=== PATIENT | female | born 1975 | race Caucasian/White ===

== ENCOUNTER → 2018-03-02 09:30 | Outpatient (CLI) | payer MEDICAID, SELFPAY ==
[2018-03-02 10:38] LABS: HCT 42.8 % (36.0-46.0); HGB 14.7 g/dL (12.0-15.5); Mean Corp. HGB Concentration 34.3 g/dL (32.0-36.0); Mean Corpuscular Volume 93.2 fL (80-95); Platelet Count 251 x1000/uL (130-400); RBC 4.59 m/cumm (4.00-5.20); RBC Distribution Width 11.8 % (11.7-14.6); White Blood Cell Count 6.47 k/cumm (4.4-10.8)
[2018-03-02 10:58] LABS: ALT 18 U/L (12-78); AST 11 U/L (15-37); Albumin 4.1 g/dL (3.4-5.0); Alkaline Phosphatase 68 U/L (46-116); Anion Gap 8.1 mmol/L (3-11); BUN 9 mg/dL (7-18); Bilirubin, Total 0.7 mg/dL (0.2-1.0); CO2 28.9 mmol/L (21.0-32.0); CREATININE 0.76 mg/dL (0.55-1.02); Chloride 103 mmol/L (98-107); Glucose 82 mg/dL (70-100); Potassium 3.9 mmol/L (3.5-5.1); Sodium 140 mmol/L (136-145); Total Protein 7.8 g/dL (6.4-8.2)
[2018-03-02 11:38] LABS: ESR 20 MM/HR (0-20)
== END ==
PROVIDERS: PCP Physician Assistant Medical; Visit Provider Internal Medicine Rheumatology
DX: L40.9 Psoriasis, unspecified (principal); Z79.1 Long term (current) use of non-steroidal anti-inflammatories (NSAID)
CPT/HCPCS: 36415; 80053; 85027; 85652; 86140

== ENCOUNTER 2018-08-28 12:48 | Outpatient (CLI) | payer MEDICAID, SELFPAY ==
[2018-08-28 13:18] LABS: HCT 39.5 % (36.0-46.0); HGB 13.7 g/dL (12.0-15.5); Mean Corp. HGB Concentration 34.7 g/dL (32.0-36.0); Mean Corpuscular Hemoglobin 32.3 pg (27.0-33.0); Mean Corpuscular Volume 93.2 fL (80-95); Mean Platelet Volume 9.1 fL (8.0-11.0); Platelet Count 253 x1000/uL (130-400); RBC 4.24 m/cumm (4.00-5.20); White Blood Cell Count 9.03 k/cumm (4.4-10.8)
[2018-08-28 13:48] LABS: ALT 15 U/L (12-78); AST 13 U/L (15-37); Albumin 3.8 g/dL (3.4-5.0); Alkaline Phosphatase 64 U/L (46-116); Anion Gap 9.4 mmol/L (3-11); BUN 11 mg/dL (7-18); Bilirubin, Total 0.5 mg/dL (0.2-1.0); C-Reactive Protein 0.22 mg/dL (0.0-0.3); CO2 28.6 mmol/L (21.0-32.0); CREATININE 0.95 mg/dL (0.55-1.02); Calcium 9.5 mg/dL (8.5-10.1); Chloride 103 mmol/L (98-107); Glucose 95 mg/dL (70-100); Potassium 4.1 mmol/L (3.5-5.1); Sodium 141 mmol/L (136-145); Total Protein 7.8 g/dL (6.4-8.2)
[2018-08-28 14:30] LABS: ESR 28 MM/HR (0-20)
[2018-08-29 04:58] LABS: Vitamin D 25 Total 55.4 ng/ml (30-100)
== END 2018-08-28 13:08 ==
PROVIDERS: PCP Physician Assistant Medical; Visit Provider Internal Medicine Rheumatology
DX: L40.9 Psoriasis, unspecified (principal); Z79.1 Long term (current) use of non-steroidal anti-inflammatories (NSAID); E55.9 Vitamin D deficiency, unspecified
CPT/HCPCS: 36415; 80053; 82306; 85027; 85652; 86140

== ENCOUNTER 2018-11-15 16:01 | Outpatient (CLI) | payer MEDICAID, SELFPAY ==
[2018-11-15 16:19] LABS: Abs Immature Grans 0.01 k/cumm (0.0-0.09); Absolute Basophil Count 0.04 k/cumm (0.0-0.2); Absolute Eosinophil Count 0.06 k/cumm (0.0-0.7); Absolute Lymphocyte Count 1.82 k/cumm (1.2-3.4); Absolute Monocyte Count 0.59 k/cumm (0.11-0.7); Absolute Neutrophil Count 3.97 k/cumm (1.2-6.7); Basophils % 0.6; Eosinophils % 0.9; HCT 39.8 % (36.0-46.0); HGB 13.7 g/dL (12.0-15.5); Immature Grans % 0.2; Mean Corp. HGB Concentration 34.4 g/dL (32.0-36.0); Mean Corpuscular Hemoglobin 32.2 pg (27.0-33.0); Mean Corpuscular Volume 93.4 fL (80-95); Mean Platelet Volume 9.3 fL (8.0-11.0); Monocytes % 9.1; Neutrophils % 61.2; Platelet Count 244 x1000/uL (130-400); RBC 4.26 m/cumm (4.00-5.20); White Blood Cell Count 6.49 k/cumm (4.4-10.8)
[2018-11-15 17:03] LABS: ALT 23 U/L (12-78); AST 12 U/L (15-37); Albumin 3.8 g/dL (3.4-5.0); Alkaline Phosphatase 57 U/L (46-116); Anion Gap 9.2 mmol/L (3-11); BUN 11 mg/dL (7-18); Bilirubin, Total 0.5 mg/dL (0.2-1.0); C-Reactive Protein 0.19 mg/dL (0.0-0.3); CO2 26.8 mmol/L (21.0-32.0); CREATININE 0.76 mg/dL (0.55-1.02); Calcium 8.5 mg/dL (8.5-10.1); Chloride 101 mmol/L (98-107); Glucose 103 mg/dL (70-100); Potassium 3.7 mmol/L (3.5-5.1); Sodium 137 mmol/L (136-145); Total Protein 7.4 g/dL (6.4-8.2)
[2018-11-15 18:13] LABS: ESR 19 MM/HR (0-20)
== END 2018-11-15 16:21 ==
PROVIDERS: Internal Medicine Rheumatology; PCP Physician Assistant Medical; Visit Provider Physician Assistant Medical
DX: L40.9 Psoriasis, unspecified (principal); Z79.01 Long term (current) use of anticoagulants; E03.9 Hypothyroidism, unspecified
CPT/HCPCS: 36415; 80053; 85652; 84443; 85025; 86140

== ENCOUNTER 2019-05-13 11:40 | Outpatient (CLI) | payer MEDICAID, SELFPAY ==
[2019-05-13 13:17] LABS: TSH (W/Ref FT4) 0.24 uIU/mL (0.36-3.74)
[2019-05-13 13:35] LABS: FREE T4 1.32 ng/dL (0.76-1.46)
== END 2019-05-13 12:00 ==
PROVIDERS: PCP Physician Assistant Medical; Visit Provider Physician Assistant Medical
DX: E03.9 Hypothyroidism, unspecified (principal)
CPT/HCPCS: 36415; 84439; 84443

== ENCOUNTER 2019-12-29 21:36 | Outpatient (REF) | payer MEDICAID, SELFPAY ==
[2019-12-29 20:44] LABS: Hemoglobin A1C 5.3 % (3.8-5.6)
[2019-12-29 20:50] LABS: TSH 1.54 uIU/mL (0.36-3.74)
== END 2019-12-29 21:56 ==
LOC: NCHCN 21:36
PROVIDERS: PCP Physician Assistant Medical; Visit Provider Physician Assistant Medical
DX: Z13.29 Encounter for screening for other suspected endocrine disorder (principal); Z13.1 Encounter for screening for diabetes mellitus; Z00.00 Encounter for general adult medical examination without abnormal findings
CPT/HCPCS: 83036; 84443

== ENCOUNTER 2020-03-16 00:39 | Outpatient (CLI) | payer MEDICAID, SELFPAY ==
--- NOTE | 2020-03-16 13:05 | DI.MAMMO_ITS ---
EXAM: MG MAMMO SCREENING CLINICAL HISTORY: SCREENING, Z12.31, PREVENTATIVE CARE, Z00.00 TECHNIQUE: Bilateral full field digital CC and MLO mammographic images were obtained with 3D tomosyn thesis and utilizing computer aided detection (CAD). COMPARISON: None. FINDINGS: Masses/Architectural Distortion: None seen. Microcalcifications: No suspicious pleomorphic-type are seen. Skin Thickening/Nipple Retraction: None. IMPRESSION: 1. No significant interval change with no specific features of malignancy noted. 2. Unless there is more urgent need, screening mammography is recommended, as per [employer] guidelines. BI-RADS Category 1 - Negative Breast Density - Category B - Scattered areas of fibroglandular density A negative radiographic report should not delay biopsy if a dominant or clinically suspicious mass is present. Up to ten percent of cancers are not identified on mammography. A negative report may reinforce clinical impression. Adenosis and dense breasts may obscure an underlying neoplasm. False positive reports average 6 to 10%. Patient will receive a letter notifying them of these results.
== END 2020-03-16 00:59 ==
PROVIDERS: PCP Physician Assistant Medical; Visit Provider Physician Assistant Medical
DX: Z12.31 Encounter for screening mammogram for malignant neoplasm of breast (principal)
CPT/HCPCS: 77063; 77067

== ENCOUNTER 2020-11-22 22:59 | Outpatient (REF) | payer MEDICAID, SELFPAY ==
[2020-11-22 16:21] LABS: Abs Immature Grans 0.03 10^3/uL (0.0-0.06); Absolute Basophil Count 0.03 10^3/uL (0.0-0.2); Absolute Eosinophil Count 0.05 10^3/uL (0.0-0.7); Absolute Lymphocyte Count 1.76 10^3/uL (1.2-3.4); Absolute Monocyte Count 0.46 10^3/uL (0.1-0.8); Absolute Neutrophil Count 3.84 10^3/uL (1.2-6.7); Basophils % 0.5; Eosinophils % 0.8; HCT 42.1 % (36.0-46.0); HGB 14.6 g/dL (11.2-15.7); Immature Grans % 0.5; Lymphocytes % 28.5; MCH 31.6 pg (27.0-33.0); MCHC 34.7 % (32.0-36.0); MCV 91.1 fL (80-95); MPV 9.9 fL (8.0-11.0); Monocytes % 7.5; Neutrophils % 62.2; Nucleated RBC 0 %; Platelet Count 266 10^3/uL (130-400); RBC 4.62 10^6/uL (3.93-5.22); RDW 11.5 % (11.7-14.6); RDW-SD 38.4 fL; WBC 6.17 10^3/uL (4.4-10.8)
[2020-11-22 16:53] LABS: ALT 23 U/L (14-59); AST 20 U/L (15-37); Albumin 3.9 g/dL (3.4-5.0); Alkaline Phosphatase 70 U/L (46-116); Anion Gap 11.4 mmol/L (3-11); BUN 10 mg/dL (7-18); Bilirubin, Total 0.6 mg/dL (0.2-1.0); CO2 24.6 mmol/L (21.0-32.0); CREATININE 0.7 mg/dL (0.55-1.02); Calcium 9.1 mg/dL (8.5-10.1); Chloride 105 mmol/L (98-107); Creatine Kinase 418 U/L (26-192); FREE T4 1.23 ng/dL (0.76-1.46); Glucose 99 mg/dL (74-106); Magnesium 2.2 mg/dL (1.8-2.4); Potassium 4.1 mmol/L (3.5-5.1); Sodium 141 mmol/L (136-145); TSH 2.14 uIU/mL (0.36-3.74); Total Protein 7.5 g/dL (6.4-8.2)
[2020-11-22 16:59] LABS: Hemoglobin A1C 5.5 % (<5.7)
[2020-11-23 17:35] LABS: T3, Total 141 ng/dL (97-169)
== END 2020-11-22 23:00 | disposition home or self-care (01) ==
LOC: NCHCN 22:59
PROVIDERS: PCP Physician Assistant Medical; Visit Provider Physician Assistant Medical
DX: R53.83 Other fatigue (principal); E03.9 Hypothyroidism, unspecified; R25.2 Cramp and spasm; Z86.32 Personal history of gestational diabetes
CPT/HCPCS: 80053; 82550; 83036; 83735; 84439; 84443; 84480; 85025

== ENCOUNTER 2020-12-06 09:31 | Outpatient (REF) | payer MEDICAID, SELFPAY ==
[2020-12-06 15:29] LABS: Bilirubin Negative (Negative); Blood Negative (Negative); Clarity Clear (Clear); Glucose Negative (Negative); Ketones Negative (Negative); Leukocyte Esterase Trace (Negative); Nitrite Negative (Negative); Specific Gravity 1.015 (1.005-1.025); Urobilinogen 0.2 EU/dL (Up TO 0.2); pH 7.5 (5-8)
[2020-12-06 15:42] LABS: Bacteria Moderate HPF (Negative); C & S Indicated? No/Sq. Contamination; Casts Negative LPF (Negative); Crystals Negative HPF (Negative); Epithelial Cells Moderate HPF (Negative); Mucus Negative (Negative); RBC 0-2 HPF (0-2)
[2020-12-06 17:00] LABS: Creatine Kinase 81 U/L (26-192)
== END 2020-12-06 09:32 | disposition home or self-care (01) ==
LOC: NCHCN 09:31
PROVIDERS: PCP Physician Assistant Medical; Visit Provider Physician Assistant Medical
DX: R74.8 Abnormal levels of other serum enzymes (principal); R82.998 Other abnormal findings in urine
CPT/HCPCS: 82550; 81003; 81015

== ENCOUNTER 2020-12-16 13:55 | Emergency (ER) | payer MEDICAID, SELFPAY ==
[2020-12-16] VITALS (41 sets, daily range): BP systolic 118–170; BP diastolic 57–88; PULSE 73–97; RESP 11–27; TEMP 36.8; O2SAT 92–100
--- NOTE | 2020-12-16 13:45 | RT.EKG_ITS ---
APPROVED REPORT Exam: Resting ECG Reason for Exam: chest pain Patient Location: E HR:90 bpm ECG Measurements Heart Rate 90 AXIS NJ 174 P 59 QRSd 93 QRS 7 QT 363 T 40 QTc 444 Conclusion Sinus rhythm...normal P axis, V-rate 60- [address] t wave ischemic findings
--- NOTE | 2020-12-16 14:06 | ED.GENADUL_ITS ---
Discharge Plan Disposition Patient Disposition: HOME Condition: Improving Discharge Details Clinical Impression: Chest pain, Fatigue, Hypertension Primary Care Provider: Jose Antonio Harden ED Provider: Belen Walker Home Meds and New Rx's Prescriptions: Continued cholecalciferol (vitamin D3) 25 mcg (1,000 unit) capsule 25 mcg PO DAILY RF: 0 magnesium 200 mg tablet 200 mg PO DAILY RF: 0 bupropion HCl [Wellbutrin SR] 150 mg tablet sustained-release 12 hr 150 mg PO QAM RF: 0 triamcinolone acetonide 0.1 % cream 1 applic topical BID RF: 0 fluticasone propionate 50 mcg/actuation spray,suspension 2 spray intranasal DAILY RF: 0 levothyroxine 150 mcg capsule 150 mcg PO DAILY RF: 0 Mirena 1 EACH intrauterine device 1 ea Intrauterine RF: 0 ferrous sulfate 325 mg (65 mg iron) Tablet 325 mg PO DAILY RF: 0 Discharge Instructions Instructions: Chest Pain (ED), Hypertension (ED), Fatigue (ED) Additional Instructions: Drink plenty of fluids and get plenty of rest. Alternate tylenol and motrin as needed and directed for pain. Limit the sodium intake in your diet as this can contribute to high blood pressure. Follow-up with your scheduled appointment with your primary care doctor on Sunday for reevaluation and for continued monitoring of your blood pressure. Return immediately to the emergency department if you develop any worsening or new concerning symptoms. Discharge Data Discharge Physician: Belen Walker Medical Decision Making <Wiliam Pinzon MD - Last Filed: 12/16/20 15:06> 45 yo female with hx of hypothyroidism, no known history of hypertension, comes in with complaints of intermittent not feeling well and chest pain. She states she got her second covid vaccine on 12/06 on my history I took with her and the next 24 hours she was fatigued but that improved but still has had a general feeling of not feeling well. Since last Sunday she has had some intermittent left sided chest pain that sometimes increases with deep breaths otherwise can't think of anything else that makes it better or worse. Today at work as a [employer] she wasn't exerting herself significantly and felt a sharp pain in the left arm pit. She has been having high blood pressure since seing Dr. Chan in her office on 12/14 for evaluation for possible colonscopy and was in the 170's systolic at that time. She has been checking it at home and has had similar numbers. She went to urgent care with her left arm pit/chest pain and was referred here. She denies fever, chills, abdomen pain, n/v, diaphoresis. She denies pain in the chest now. She appears well systemically, no calf tenderness or leg swelling, clear lungs sounds and no murmurs. Her ekg shows no significant acute ischemic findings. Heart score is 3, will send troponin. Will also evaluate for Pe given the pleuritic chest pain. No tearing chest pain and normal vascular exam so doubt dissection pt remains stable, labs unremarkable, awaiting CTA. Pt will be signed out pending cta and repeat troponin Differential Diagnosis Differential Diagnosis: chest wall pain, PE, nstemi ECG Data Attestation: I personally reviewed and interpreted this ECG (s) as follows: Prior ECG tracings: not available for review Interpretation: sinus rhythm, rate of 90, pr 174, no acute st t wave ischemic findings <Bleen Walker DO - Last Filed: 12/16/20 21:37> 1500 --please see Dr. Pinzon's note for initial presentation, exam and plan. Case endorsed to follow-up on CT chest and repeat troponin and EKG. if work-up negative and blood pressure continues to improve, will discharge to home. 45-year-old female with a history of obesity and hypothyroidism presents for flulike symptoms for the past 10 days after her second Covid vaccine with intermittent substernal chest pressure for the past 6 days and left arm pain today. Blood pressure now 150/88. She admits to some mild substernal chest pressure which is reproducible. History and presentation does not appear consistent with ACS. She denies left arm pain. CT chest negative for PE but notes cholelithiasis without evidence of cholecystitis. Will give a dose of Toradol and reassess. 1800 -- BP 118/70. Repeat Trop negative. Repeat EKG unchanged. Patient admits to improvement of chest pressure after Toradol. Patient states she feels good to go home. She has a follow-up appointment with her primary care doctor on Sun. Advised to limit sodium in the diet as this may be contributing to her intermittent hypertension. Will not start any antihypertensive meds at this time. Discussed that it is unclear at this time if her hypertension is related to the Covid vaccine. Advised to continue rest and fluids. Usual and customary return precautions given prior to discharge. Medical Records Medical records reviewed: Yes I reviewed the patient's medical records. Imaging Data Radiologic Study: Radiologist's impression: CT CHEST PE CTA CLINICAL HISTORY: fatigue, pleuritic chest pain. TECHNIQUE: Imaging Protocol: Axial CT angiography was performed with multi- slice acquisition and multi-planar and/or 3D reconstructions. CONTRAST MATERIAL: Intravenous: Omnipaque 350 Contrast volume:100 mL COMPARISON: No exams were available for comparison FINDINGS: Tracheobronchial tree: Patent where visualized. Pulmonary parenchyma: There is dependent atelectasis. No focal consolidating infiltrates. There is poor inspiration. No architectural distortion. Pulmonary Arteries: No evidence of filling defect to suggest pulmonary emboli. Mediastinum and Ronel: No dominant adenopathy or fluid collection. Small hiatal hernia. Visualized thyroid gland: Unremarkable. Pleura: No effusion or pneumothorax. Heart: The heart is not dilated. No coronary artery calcifications are seen. No pericardial effusion. Aorta: Thoracic aorta non-dilated. Mild atherosclerosis. No dissection. Upper abdomen: Cholelithiasis. No biliary ductal dilatation. Soft tissues: Unremarkable. Bones: No acute abnormality. IMPRESSION: 1. No evidence of pulmonary embolism, thoracic aortic dissection or aneurysm. 2. Cholelithiasis. No CT evidence of acute cholecystitis. 3. Results of this exam have been verbally communicated with provider. Lab Data Lab results reviewed: Yes I reviewed the patient's lab results. Labs: Laboratory Tests Range/Units 12/16/20 12/16/20 12/16/20 14:05 14:05 14:05 WBC (4.4-10.8) 10^3/uL 9.17 RBC (3.93-5.22) 10^6/uL 4.84 Hgb (11.2-15.7) g/dL 15.1 Hct (36.0-46.0) % 43.4 MCV (80-95) fL 89.7 MCH (27.0-33.0) pg 31.2 MCHC (32.0-36.0) % 34.8 RDW (11.7-14.6) % 11.2 L Plt Count (130-400) 10^3/uL 306 MPV (8.0-11.0) fL 8.9 Immature Gran % 0.8 Neutrophils % 65.9 Lymphocytes % 25.0 Monocytes % 7.0 Eosinophils % 0.9 Basophils % 0.4 Nucleated RBC % % 0 Absolute Neutrophils (1.2-6.7) 10^3/uL 6.05 Absolute Lymphocytes (1.2-3.4) 10^3/uL 2.29 Absolute Monocytes (0.1-0.8) 10^3/uL 0.64 Absolute Eosinophils (0.0-0.7) 10^3/uL 0.08 Absolute Basophils (0.0-0.2) 10^3/uL 0.04 PT (9.3-11.0) sec 10.3 INR (0.9-1.1) 1.0 APTT (21.0-27.5) sec 28.1 H Sodium (136-145) mmol/L 140 Potassium (3.5-5.1) mmol/L 3.6 Chloride (98-107) mmol/L 103 Carbon Dioxide (21.0-32.0) mmol/L 28.6 Anion Gap (3-11) mmol/L 8.4 BUN (7-18) mg/dL 10 Creatinine (0.55-1.02) mg/dL 0.8 Estimated GFR/1.73 m2 (mL/min/1.73m2) >= 60.00 Glucose (74-106) mg/dL 105 Calcium (8.5-10.1) mg/dL 9.1 Magnesium (1.8-2.4) mg/dL 2.3 Total Bilirubin (0.2-1.0) mg/dL 0.6 AST (15-37) U/L 19 ALT (14-59) U/L 31 Alkaline Phosphatase (46-116) U/L 80 Troponin I (<0.06) ng/mL < 0.05 Total Protein (6.4-8.2) g/dL 8.5 H Albumin (3.4-5.0) g/dL 4.1 Lipase (73-393) U/L 33 Range/Units 12/16/ 17:10 WBC (4.4-10.8) 10^3/uL RBC (3.93-5.22) 10^6/uL Hgb (11.2-15.7) g/dL Hct (36.0-46.0) % MCV (80-95) fL MCH (27.0-33.0) pg MCHC (32.0-36.0) % RDW (11.7-14.6) % Plt Count (130-400) 10^3/uL MPV (8.0-11.0) fL Immature Gran % Neutrophils % Lymphocytes % Monocytes % Eosinophils % Basophils % Nucleated RBC % % Absolute Neutrophils (1.2-6.7) 10^3/uL Absolute Lymphocytes (1.2-3.4) 10^3/uL Absolute Monocytes (0.1-0.8) 10^3/uL Absolute Eosinophils (0.0-0.7) 10^3/uL Absolute Basophils (0.0-0.2) 10^3/uL PT (9.3-11.0) sec INR (0.9-1.1) APTT (21.0-27.5) sec Sodium (136-145) mmol/L Potassium (3.5-5.1) mmol/L Chloride (98-107) mmol/L Carbon Dioxide (21.0-32.0) mmol/L Anion Gap (3-11) mmol/L BUN (7-18) mg/dL Creatinine (0.55-1.02) mg/dL Estimated GFR/1.73 m2 (mL/min/1.73m2) Glucose (74-106) mg/dL Calcium (8.5-10.1) mg/dL Magnesium (1.8-2.4) mg/dL Total Bilirubin (0.2-1.0) mg/dL AST (15-37) U/L ALT (14-59) U/L Alkaline Phosphatase (46-116) U/L Troponin I (<0.06) ng/mL < 0.05 Total Protein (6.4-8.2) g/dL Albumin (3.4-5.0) g/dL Lipase (73-393) U/L HPI <Wiliam Pinzon MD - Last Filed: 12/16/20 15:06> General Mode of arrival: ambulatory . Date/Time Provider Initiated Documentation: 12/16/20 13:59 . Limitations to Documentation: no limitations . Information obtained by: patient . History of Present Illness 45 year old F presents to the emergency department with the chief complaint of chest pain, described as moderate, Quality is described as aching, and is localized to the chest. Patient started experiencing this day(s) (6) and it has been intermittent. No relieving factors improve symptom(s), No exacerbating factors reported . Patient did receive the following treatments prior to arrival, none Related Data Home Medications Medication Instructions Recorded Confirmed Mirena 1 ea INTRAUTERINE 12/17/17 bupropion HCl 150 mg tablet,12 hr 150 mg PO QAM 11/24/20 12/16/20 sustained-release fluticasone propionate 50 2 spray INTRANASAL DAILY 11/24/20 12/16/20 mcg/actuation nasal spray,suspension levothyroxine 150 mcg capsule 150 mcg PO DAILY 11/24/20 12/16/20 triamcinolone acetonide 0.1 % 1 applic TOPICAL BID 11/24/20 12/16/20 topical cream cholecalciferol (vitamin D3) 25 25 mcg PO DAILY 12/14/20 mcg (1,000 unit) capsule magnesium 200 mg tablet 200 mg PO DAILY 12/14/20 12/16/20 ferrous sulfate 325 mg PO DAILY 12/16/20 12/16/20 Allergies Allergy/AdvReac Type Severity Reaction Status Date / Time methotrexate Allergy Intermediate Verified 12/16/20 14:06 latex Allergy Unknown Verified 12/16/20 14:06 General Stated Complaint: Chest Pain HAILEY: 2 Review of Systems <Wiliam Pinzon MD - Last Filed: 12/16/20 15:06> All systems reviewed & are unremarkable except as noted in HPI and below Constitutional Constitutional: Denies chills and Denies fever(s) Respiratory Respiratory: Denies cough Gastrointestinal Gastrointestinal: Denies abdominal pain, Denies nausea and Denies vomiting PFS <Wiliam Pinzon MD - Last Filed: 12/16/20 15:06> Medical History Bilateral carpal tunnel syndrome Depression Erythema multiforme Fatigue Gestational diabetes Gestational diabetes mellitus (GDM) affecting Hemorrhoids History of depression Hypothyroidism Hypothyroidism affecting Jaw pain Lymphadenopathy Muscle cramps Perioral dermatitis Psoriasis of scalp Psoriatic arthritis Seasonal allergies Skin tag Tobacco abuse Toe infection Surgical History Dilation and curettage (01/16/16) SEVERED CORD AFTER DELIVERY OF INFANT, RETAINED PLACENTA. History of colposcopy Family History Mother Diabetes Father No problems noted. Grandmother Personal history of malignant neoplasm uterine Other Stroke Social History Smoking/Tobacco Use Status: Former Tobacco Use Quit Date: 10/14/12 Smoking risk assessment performed?: Yes Alcohol Intake: current Alcohol Intake frequency: holidays/special occasions only Drug use: Never Current gender identity: female Do you feel safe at home: Yes Do you feel safe in your relationship?: Yes Exam <Wiliam Pinzon MD - Last Filed: 12/16/20 15:06> Const General: no acute distress Orientation: alert HENMT Head: normal to inspection Ears: external ears normal General nose exam: external nose normal Mouth: moist mucous membranes Eyes General: appearance normal, both eyes and all related structures Neck Neck: normal visual inspection Resp Effort & Inspection: normal respiratory effort and able to speak in complete sentences Cardio Rate: regular rate GI Palpation: soft and nontender Skin General skin exam: no rashes or lesions noted Neuro General: patient alert and patient oriented x3 Extrem General: normal to inspection Psych Mental Status: mental status grossly normal Course <Wiliam Pinzon MD - Last Filed: 12/16/20 15:06> Vital Signs Vital signs: Vital Signs Temperature 36.8 C 12/16/20 14:00 Pulse 89 12/16/20 14:00 Respiratory Rate 20 12/16/20 14:00 Blood Pressure 170/88 H 12/16/20 14:00 Pulse Oximetry 99 12/16/20 14:00 Temperature 36.8 C 12/16/20 14:00 Temperature Source Temporal Artery Scan 12/16/20 14:00 Pulse 89 12/16/20 14:00 Respiratory Rate 20 12/16/20 14:00 Respiratory Effort Non-Labored 12/16/20 14:05 Blood Pressure 170/88 H 12/16/20 14:00 Blood Pressure Position Supine 12/16/20 14:00 Pulse Oximetry 99 12/16/20 14:00 Oxygen Delivery Method Room Air 12/16/20 14:00 Oxygen Flow Rate 0 12/16/20 14:00 Pain Level 0 12/16/20 14:00 Sign Out <Wiliam Pinzon MD - Last Filed: 12/16/20 15:06> Sign Out Data: Sign Out Comment: pleuritic chest pain, initial troponin negative, awaiting repeat troponin/ecg and cta results Last updated by Wiliam Pinzon MD at 12/16/20 15:07
[2020-12-16 14:13] LABS: Abs Immature Grans 0.07 10^3/uL (0.0-0.06); Absolute Basophil Count 0.04 10^3/uL (0.0-0.2); Absolute Eosinophil Count 0.08 10^3/uL (0.0-0.7); Absolute Lymphocyte Count 2.29 10^3/uL (1.2-3.4); Absolute Monocyte Count 0.64 10^3/uL (0.1-0.8); Absolute Neutrophil Count 6.05 10^3/uL (1.2-6.7); Basophils % 0.4; Eosinophils % 0.9; HCT 43.4 % (36.0-46.0); HGB 15.1 g/dL (11.2-15.7); Immature Grans % 0.8; MCH 31.2 pg (27.0-33.0); MCHC 34.8 % (32.0-36.0); MCV 89.7 fL (80-95); MPV 8.9 fL (8.0-11.0); Neutrophils % 65.9; Nucleated RBC 0 %; Platelet Count 306 10^3/uL (130-400); RBC 4.84 10^6/uL (3.93-5.22); RDW 11.2 % (11.7-14.6); RDW-SD 36.8 fL; WBC 9.17 10^3/uL (4.4-10.8)
--- NOTE | 2020-12-16 14:15 | DI.CT_ITS ---
Exam(s) CT CHEST PE CTA EXAM: CT CHEST PE CTA CLINICAL HISTORY: fatigue, pleuritic chest pain. TECHNIQUE: Imaging Protocol: Axial CT angiography was performed with multi-slice acquisition and mu lti-planar and/or 3D reconstructions. CONTRAST MATERIAL: Intravenous: Omnipaque 350 Contrast volume:100 mL COMPARISON: No exams were available for comparison FINDINGS: Tracheobronchial tree: Patent where visualized. Pulmonary parenchyma: There is dependent atelectasis. No focal consolidating infiltrates. There is poor inspiration. No architectural distortion. Pulmonary Arteries: No evidence of filling defect to suggest pulmonary emboli. Mediastinum and Ronel: No dominant adenopathy or fluid collection. Small hiatal hernia. Visualized thyroid gland: Unremarkable. Pleura: No effusion or pneumothorax. Heart: The heart is not dilated. No coronary artery calcifications are seen. No pericardial effusion. Aorta: Thoracic aorta non-dilated. Mild atherosclerosis. No dissection. Upper abdomen: Cholelithiasis. No biliary ductal dilatation. Soft tissues: Unremarkable. Bones: No acute abnormality. IMPRESSION: 1. No evidence of pulmonary embolism, thoracic aortic dissection or aneurysm. 2. Cholelithiasis. No CT evidence of acute cholecystitis. 3. Results of this exam have been verbally communicated with provider. RADIATION DOSE DELIVERED: 582.59mGy.cm Total DLP DATA REPOSITORY: All CT scans at this facility are submitted to the National Radiology Data Registry (NRDR) Dose Index Registry (DIR) with the [employer] (ACR). RADIATION OPTIMIZATION: All CT scans at this facility use at least one of these dose optimization te chniques: automated exposure control; mA and/or kV adjustment per patient size (includes targeted exa ms where dose is matched to clinical indication); or iterative reconstruction.
[2020-12-16 14:25] LABS: PTT Activated 28.1 sec (21.0-27.5); Prothrombin Time 10.3 sec (9.3-11.0)
[2020-12-16 14:28] LABS: ALT 31 U/L (14-59); AST 19 U/L (15-37); Albumin 4.1 g/dL (3.4-5.0); Alkaline Phosphatase 80 U/L (46-116); Anion Gap 8.4 mmol/L (3-11); BUN 10 mg/dL (7-18); Bilirubin, Total 0.6 mg/dL (0.2-1.0); CO2 28.6 mmol/L (21.0-32.0); CREATININE 0.8 mg/dL (0.55-1.02); Calcium 9.1 mg/dL (8.5-10.1); Chloride 103 mmol/L (98-107); Glucose 105 mg/dL (74-106); Lipase 33 U/L (73-393); Magnesium 2.3 mg/dL (1.8-2.4); Potassium 3.6 mmol/L (3.5-5.1); Sodium 140 mmol/L (136-145); Total Protein 8.5 g/dL (6.4-8.2)
[2020-12-16 14:29] LABS: Troponin I < 0.05 ng/mL (<0.06)
[2020-12-16] MEDS: Omnipaque 350 MG/ML 100 ML BTL IJ (15:01)
[2020-12-16] MEDS: Normal Saline - Diluent 50 ML VIAL IV (15:02)
[2020-12-16] MEDS: Aspirin 81 MG CHEW 324 MG CH (15:20)
[2020-12-16] MEDS: Normal Saline 250 ML 500 ML IV (15:40)
[2020-12-16] MEDS: Ketorolac 30 MG/ML VIAL IVP (15:40)
--- NOTE | 2020-12-16 16:15 | RT.EKG_ITS ---
APPROVED REPORT Exam: Resting ECG Reason for Exam: chest pressure Patient Location: E HR:76 bpm ECG Measurements Heart Rate 76 AXIS DC 187 P 45 QRSd 87 QRS 4 QT 386 T 27 QTc 434 Conclusion Sinus rhythm...normal P axis, V-rate 60- 99 Physician: No stemi, stable
[2020-12-16 18:07] LABS: Troponin I < 0.05 ng/mL (<0.06)
== END 2020-12-16 18:32 | disposition home or self-care (01) ==
PROVIDERS: Emergency Medicine; Emergency Provider Physician Assistant; PCP Physician Assistant Medical
DX: R07.89 Other chest pain (principal); I10 Essential (primary) hypertension; R53.83 Other fatigue; R07.81 Pleurodynia
CPT/HCPCS: 36415; 71275; 80053; 81025; 83690; 93005; 96361; 96374; 99285; 83735; 84484; 85025; 85610; 85730; 93010; 99284; J1885; J3490

== ENCOUNTER 2020-12-21 10:54 | Outpatient (RCR) | payer MEDICAID, SELFPAY ==
--- NOTE | 2020-12-21 11:30 | HOLTER_ITS ---
APPROVED REPORT Conclusion This is a 48-hour monitor ordered for indication of palpitations. ???The patient was in normal sinus rhythm for the majority of the recording with an average heart rat e of 82 bpm. ???There was one episode of supraventricular tachycardia which lasted 3 beats. There were 6 other PA Cs ???There were no episodes of ventricular tachycardia and 2 total PVCs. ???There were no episodes of atrial fibrillation, no pauses greater than 3 seconds and no evidence of high degree heart block. ???There was a single patient reported event with no symptoms and no arrhythmia correlation.
== END 2021-01-12 23:59 | disposition home or self-care (01) ==
LOC: RT 10:54
PROVIDERS: PCP Physician Assistant Medical; Visit Provider Physician Assistant Medical
DX: R00.2 Palpitations (principal); I47.1 Supraventricular tachycardia; I49.3 Ventricular premature depolarization; I49.1 Atrial premature depolarization
CPT/HCPCS: 93225; 93226

== ENCOUNTER 2021-01-10 11:07 | Outpatient (REF) | payer MEDICAID, SELFPAY ==
--- NOTE | 2021-01-10 08:30 | PAPFT_PTH ---
PATIENT: Clarita Smith LOC: [facility]#:[id number] AGE/SX: 45/F ROOM: RE01/10/[address]: Jose Antonio Harden : 1975 BED: DIS: 01/10/2021 SPEC #: [id number] RECD: 01/11/21 12:48 STATUS: JONAH RELiya #: [id number] SIRENA: 01/10/21 08:[address]: Jose Antonio Harden DEPT: [facility] Cytology RECD BY: India Sanchez Tissues: 1 - CX/ENDOCX FOR PAP SMEARS Procedures: PAP THIN PREP/UVM Screening HPV DNA PROBE Comments: [id number]
[2021-01-10 14:45] LABS: Anion Gap 8.9 mmol/L (3-11); BUN 8 mg/dL (7-18); CO2 28.1 mmol/L (21.0-32.0); CREATININE 0.7 mg/dL (0.55-1.02); Calculated LDL 110 mg/dL (<100); Chloride 104 mmol/L (98-107); Cholesterol 170 mg/dL (<200); Glucose 108 mg/dL (74-106); HDL Cholesterol 43 mg/dL (40-60); Potassium 4.3 mmol/L (3.5-5.1); Sodium 141 mmol/L (136-145); Triglyceride 86 mg/dL (<150)
== END 2021-01-10 11:08 | disposition home or self-care (01) ==
LOC: NCHCN 11:07
PROVIDERS: PCP Physician Assistant Medical; Visit Provider Physician Assistant Medical
DX: I10 Essential (primary) hypertension (principal); Z12.4 Encounter for screening for malignant neoplasm of cervix; Z11.51 Encounter for screening for human papillomavirus (HPV)
CPT/HCPCS: 80048; 80061; 88142; 87624

== ENCOUNTER 2021-06-06 02:27 | Outpatient (CLI) | payer MEDICAID, SELFPAY ==
[2021-06-06 10:32] LABS: Source Nasal/Nares
[2021-06-06 13:55] LABS: COVID-19 PCR Negative (Negative)
== END 2021-06-06 02:28 | disposition home or self-care (01) ==
LOC: LBO 02:27
PROVIDERS: PCP Physician Assistant Medical; Visit Provider Student in an Organized Health Care Education/Training Program
DX: Z20.822 Contact with and (suspected) exposure to COVID-19 (principal)
CPT/HCPCS: 87635

== ENCOUNTER 2021-06-07 06:39 | Day surgery (SDC) | payer MEDICAID, SELFPAY ==
--- NOTE | 2021-06-07 06:53 | W.ANESPRE ---
General Info Date of Service Date Performed: 06/07/21 Height: 5 ft 3 in Weight: 106.141 kg Body Mass Index (BMI): 41.4 Surgical Procedure: Operation Date: 06/07/21 07:40 Proposed Procedures Side Surgeon p Wrist ECTR Left Chirag Anaya MD Meds Allergies and Home Medications Allergies Allergy/AdvReac Type Severity Reaction Status Date / Time methotrexate Allergy Intermediate Verified 06/07/21 06:55 latex Allergy Unknown Verified 06/07/21 06:55 Home Medication Medication Instructions Recorded Mirena 1 ea INTRAUTERINE 12/17/17 bupropion HCl 150 mg tablet,12 hr 150 mg PO QAM 11/24/20 sustained-release fluticasone propionate 50 2 spray INTRANASAL DAILY 11/24/20 mcg/actuation nasal spray,suspension levothyroxine 150 mcg capsule 150 mcg PO DAILY 11/24/20 triamcinolone acetonide 0.1 % 1 applic TOPICAL BID 11/24/20 topical cream cholecalciferol (vitamin D3) 25 25 mcg PO DAILY 12/14/20 mcg (1,000 unit) capsule magnesium 200 mg tablet 200 mg PO DAILY 12/14/20 ferrous sulfate 325 mg PO DAILY 12/16/20 losartan 25 mg tablet 50 mg PO DAILY tab 03/28/21 Current Visit Medications: Current Medications Generic Name Dose Route Start Last Admin Trade Name Freq PRN Reason Stop Dose Admin Ringer's Solution 1,000 mls @ 80 mls/hr 06/07/21 06:00 IV 07/06/21 23:59 INFUSION YAIR Cefazolin Sodium/Dextrose 2 gm in 50 mls @ 100 mls/hr 06/07/21 06:00 Ancef Duplex IVPB 07/06/21 23:59 PREOP YAIR IV Miscellaneous Supplies 1 each 06/07/21 06:00 Iv Access IV 07/06/21 23:59 DIRECTED YAIR Sodium Chloride 0 ml 06/07/21 06:00 Normal Saline Flush 10 Ml Syr IV 07/06/21 23:59 PRN PRN Sodium Chloride 0 ml 06/07/21 06:00 Normal Saline 10 Ml Vial IJ 07/06/21 23:59 DIRECTED PRN Sterile Water 0 ml 06/07/21 06:00 Water,Injection,Sterile 10 Ml Vial IJ 07/06/21 23:59 DIRECTED PRN PFSH Active Problems Active Problems: Problem Status Onset Code Left carpal tunnel syndrome G56.02 Right carpal tunnel syndrome G56.01 Chest pain R07.9 Fatigue R53.83 Hypertension I10 External hemorrhoids K64.4 Rectal bleed K62.5 Medical History Active Problem List Rectal bleed (Acute) External hemorrhoids (Acute) Chest pain (Acute) Fatigue (Acute) Hypertension (Chronic) Right carpal tunnel syndrome (Acute) Left carpal tunnel syndrome (Acute) Medical History Bilateral carpal tunnel syndrome Depression Erythema multiforme Fatigue Gestational diabetes Hemorrhoids Hypothyroidism Jaw pain Lymphadenopathy Muscle cramps Perioral dermatitis Psoriasis of scalp Psoriatic arthritis Seasonal allergies Skin tag Tobacco abuse Surgical History Surgical History (Updated 06/07/21 @ 06:57 by Alysha Bravo) Dilation and curettage (01/16/16) SEVERED CORD AFTER DELIVERY OF , RETAINED PLACENTA. History of colposcopy Hx of tonsillectomy Tobacco Smoking/Tobacco Use Status: Former Tobacco Use Alcohol Alcohol Intake: current Alcohol intake frequency: holidays/special occasions only Substance Use Substance use: Never Vital Signs and Lab Results Lab Results Blood Type / Crossmatch: No Data to Display Complete Blood Count: No Data to Display Complete Metabolic Panel: No Data to Display Liver Function Panel: No Data to Display Coagulation Panel: No Data to Display Cardiac Panel: No Data to Display Arterial Blood Gas: No Data to Display Venous Blood Gas: No Data to Display Pancreas Panel: No Data to Display Thyroid Panel: No Data to Display Infectious Disease: Coronavirus (COVID-19)(PCR) Negative (Negative) 06/06/21 08:32 06/06/21 Coronavirus 2019 Source Nasal/Nares 06/06/21 08:32 06/06/21 Blood Cultures: No Data to Display Toxicology Panel: No Data to Display Panel: No Data to Display Imaging and Studies Imaging and Studies EKG Summary: Conclusion Sinus rhythm...normal P axis, V-rate 60- 99 Anesthesia Assessment and Plan Anesthesia History Personal History: No History of Anesthesia Complications Family History: No Family History of Anesthesia Complications Exercise Tolerance Exercise Tolerance: Metabolic Equivalents>4 Pertinent Negatives Pertinent Negatives: No Symptoms of GERD, No Major Cardiovascular Symptoms or Complaints, No Major Pulmonary Symptoms or Complaints and No History of CVA/TIA Cardiac & Pulmonary Exam Cardiac Exam: Normal S1/S2 Heart Sounds Pulmonary Exam: Clear Bilateral Breath Sounds Implantable Cardiac Device Does patient have a Pacemaker or an ICD?: No Airway Exam Known Difficult Airway: No Mallampati Class: 2 Mouth Opening: Normal (> 3cm) Thyromental Distance: Greater than 3 cm Neck Range of Motion: Full ROM Neck Circumference: Normal Teeth Condition: Normal Dentition ASA Classification ASA Score: ASA 3 Emergency Case?: No NPO Status NPO Status: NPO Clears >2 hours, Solids >8 hours Status Status: Not Relevant due to Medical History Anesthesia Plan Resuscitation Status: Full Code Anesthesia Technique: General Anesthesia Airway Planned: Natural Airway Monitors Used: Standard Monitors
[2021-06-07 06:58] VITALS: BP 140/87; PULSE 77; RESP 18; TEMP 36.2; O2SAT 100
[2021-06-07] MEDS: Lactated Ringers 1,000 ML 80 ML IV (07:00)
[2021-06-07 07:09] VITALS: BMI 41.4
--- NOTE | 2021-06-07 07:09 | W.PREOPHP ---
Date of service: 06/07/21 Time of Service: 07:09 Assessment and Plan Assessment and plan (1) Left carpal tunnel syndrome: Status: Acute Assessment and plan: Magdalene is a 45-year-old who has bilateral carpal tunnel syndrome, worse on the left. She is here today for a left carpal tunnel release. This has been previously discussed in the office. Once again, reviewed the risk of the procedure to include bleeding, infection, pain, stiffness, recurrence, continued numbness, damage to nerves and vessels. Despite these risk, she elects to proceed. History of Present Illness History of Present Illness Chief Complaint: Left carpal tunnel syndrome Narrative: Magdalene is a 45-year-old who has bilateral hand numbness and tingling. The left hand is the worst. She has previously been seen in the office with confirmation of this diagnosis. She has failed conservative options and is here today for carpal tunnel release. She denies any acute medical issues. She denies any fevers or chills. No sick contacts. COVID-19 negative. Review of Systems All systems reviewed & are unremarkable except as noted in HPI and below PFSH Active Problem List Rectal bleed (Acute) External hemorrhoids (Acute) Chest pain (Acute) Fatigue (Acute) Hypertension (Chronic) Right carpal tunnel syndrome (Acute) Left carpal tunnel syndrome (Acute) Medical History Bilateral carpal tunnel syndrome Depression Erythema multiforme Fatigue Gestational diabetes Hemorrhoids Hypothyroidism Jaw pain Lymphadenopathy Muscle cramps Perioral dermatitis Psoriasis of scalp Psoriatic arthritis Seasonal allergies Skin tag Tobacco abuse Surgical History Dilation and curettage (01/16/16) SEVERED CORD AFTER DELIVERY OF INFANT, RETAINED PLACENTA. History of colposcopy Hx of tonsillectomy Family History Mother Diabetes Father No problems noted. 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 Pets and animals: Yes Pets and animals: guinea pig(s) Current gender identity: female What is your relationship status?: refused to answer Panel score (0-1 are the most socially isolated patients): 0 What type of physical activity do you participate in: walking Seatbelt use: always Do you feel safe at home: Yes Do you feel safe in your relationship?: Yes Meds Allergies and Home Medications Allergies Allergy/AdvReac Type Severity Reaction Status Date / Time methotrexate Allergy Intermediate Verified 06/07/21 06:55 latex Allergy Unknown Verified 06/07/21 06:55 Home Medications Medication Instructions Recorded Confirmed Type Mirena 1 ea INTRAUTERINE 12/17/17 History bupropion HCl 150 mg tablet,12 hr 150 mg PO QAM 11/24/20 06/07/21 History sustained-release fluticasone propionate 50 2 spray INTRANASAL DAILY 11/24/20 06/07/21 History mcg/actuation nasal spray,suspension levothyroxine 150 mcg capsule 150 mcg PO DAILY 11/24/20 06/07/21 History triamcinolone acetonide 0.1 % 1 applic TOPICAL BID 11/24/20 06/07/21 History topical cream cholecalciferol (vitamin D3) 25 25 mcg PO DAILY 12/14/20 06/07/21 History mcg (1,000 unit) capsule magnesium 200 mg tablet 200 mg PO DAILY 12/14/20 06/07/21 History ferrous sulfate 325 mg PO DAILY 12/16/20 06/07/21 History losartan 25 mg tablet 50 mg PO DAILY tab 03/28/21 06/07/21 History Exam Const General: cooperative, healthy appearing, comfortable and no acute distress Resp Auscultation: clear to auscultation bilaterally Cardio Rate: regular rate Rhythm: regular rhythm Results Last Vital Signs Temp 36.2 C L 06/07/21 06:58 Pulse 77 06/07/21 06:58 Resp 18 06/07/21 06:58 BP 140/87 06/07/21 06:58 Pulse Ox 100 06/07/21 06:58
--- NOTE | 2021-06-07 07:28 | W.PM.DSUDISC ---
Discharge Plan Disposition Patient Disposition: HOME Condition: Good Discharge Details Reason For Visit: L ECTR Attending Provider: Chirag Anaya Primary Care Provider: Jose Antonio Harden Home Meds and New Rx's Prescriptions: New acetaminophen 500 mg tablet 1,000 mg PO Q8H PRN (Reason: pain) Qty: 60 RF: 3 ibuprofen 600 mg tablet 600 mg PO TID PRN (Reason: pain) Qty: 90 RF: 3 Continued cholecalciferol (vitamin D3) 25 mcg (1,000 unit) capsule 25 mcg PO DAILY RF: 0 magnesium 200 mg tablet 200 mg PO DAILY RF: 0 losartan 25 mg tablet 50 mg PO DAILY RF: 0 bupropion HCl [Wellbutrin SR] 150 mg tablet sustained-release 12 hr 150 mg PO QAM RF: 0 triamcinolone acetonide 0.1 % cream 1 applic topical BID RF: 0 fluticasone propionate 50 mcg/actuation spray,suspension 2 spray intranasal DAILY RF: 0 levothyroxine 150 mcg capsule 150 mcg PO DAILY RF: 0 Mirena 1 EACH intrauterine device 1 ea Intrauterine RF: 0 ferrous sulfate 325 mg (65 mg iron) Tablet 325 mg PO DAILY RF: 0 Discharge Instructions Stand Alone Forms: Jaclyn Manley Tunnel Release Referrals: Chirag Anaya MD [ [facility] STAFF PHYSICIAN] - Activity:: Activity as Tolerated Remove Dressings/Wound Care:: 48 hours Shower/Bathe:: 48 hours Discharge Orders Discharge Orders: Discharge Order (Routine); Ordered 06/07/21 Ordered By: Chirag Anaya DS: Diagnosis Discharge Diagnosis (1) Left carpal tunnel syndrome: Status: Acute
[2021-06-07] MEDS: ceFAZolin 2 GM/50 ML BAG IVPB (07:32)
[2021-06-07] MEDS: Sodium Bicarbonate 50 MEQ/50 ML VIAL (07:40)
[2021-06-07 07:47] VITALS: BP 112/79; PULSE 77; RESP 16; TEMP 36.2; O2SAT 98
[2021-06-07 08:10] VITALS: BP 131/86; PULSE 76; RESP 18; TEMP 36.2; O2SAT 100
--- NOTE | 2021-06-07 08:25 | W.ANESPOSTOP ---
Postoperative Evaluation Date, Time and Location Date Performed: 06/07/21 Time Performed: 08:25 Patient Location: Day Surgery Unit Vital Signs Most Recent Imported Vital Signs: Most Recent Vital Signs Temp Pulse Resp BP Pulse Ox 36.2 C L 76 18 131/86 100 06/07/21 08:10 06/07/21 08:10 06/07/21 08:10 06/07/21 08:10 06/07/21 08:10 Pain Score Most Recent Pain Score: Most Recent Pain Score Pain Level 0 06/07/21 07:47 Assessment Mental Status: Awake (Alert & Oriented to Patient Baseline) Airway and Respiratory Function: Patent airway with normal (patient baseline) respiratory exam Cardiovascular Function: Hemodynamically Stable Hydration Status: Adequately Hydrated Nausea & Vomiting: No Nausea or Vomiting Pain: Pt. Denies Any Pain Peripheral Nerve Block: Patient did not receive a nerve block
--- NOTE | 2021-06-07 19:47 | ROE_ITS ---
Date of service: 06/07/21 Time of Service: 07:45 Operative Note Operative Note DATE OF PROCEDURE: 06/07/21 PRE-OP DIAGNOSIS: Left Carpal Tunnel Syndrome POST-OP DIAGNOSIS: same PROCEDURE: Left Endoscopic Carpal Tunnel Release SURGEON: Chirag Anaya ANESTHESIA TYPE: General:No Airway Refer to Anesthesia Record ESTIMATED BLOOD LOSS: 0 PATHOLOGY: none sent TOURNIQUET TIME: 6 COMPLICATIONS: None Patient was transported to: same day Patient's condition: stable Indications: I have seen Magdalene in clinic for symptoms of carpal tunnel syndrome. The numbness, tingling, and pain limited function. Clinical exam findings confirmed the diagnosis of carpal tunnel syndrome. Nonoperative measures such as bracing, time, activity modifications had been tried but disability and pain persisted. I discussed carpal tunnel release with the patient. I reviewed the risks of the procedure to include, but not limited to, bleeding, infection, pain, stiffness, incomplete release, damage to nerves or vessels, persistent numbness, recurrence. Despite these risks, the patient elected to proceed. Findings: There was tightened carpal tunnel. This was dilated and released successfully with the endoscopic with increased space within the tunnel. The antebrachial fascia was released proximally freeing the median nerve at the wrist. Procedure Description: Magdalene was greeted in the preoperative holding area where the correct side was identified and marked. The consent was reviewed with the patient and signed. The history and physical was updated. All questions were answered. She was taken back to the operating room. The patient was placed into the supine position on the operating room table with the left arm on an arm board. A nonsterile tourniquet was placed high onto the arm. All bony prominences were well padded. Prophylactic antibiotics in the form of Cefazolin were administered. The left arm was then prepped with Chloraprep and draped in a standard fashion with stockinette and extremity drape. A timeout to confirm correct identity, side and site, procedure, allergies, anesthesia, and medical concerns was performed. The surgical site was marked in the volar wrist creases in line with the radial border of the fourth ray. This area was anesthetized with approximately 6cc of 1% Lidocaine. The limb was then exsanguinated with an Esmarch. The skin was incised with a 15 blade, approximately 1cm. The skin only was cut and the deeper tissue was dissected bluntly with a tenotomy scissor, avoiding passing nerve and venous structures. The fascia was penetrated and opened bluntly. A two-prong skin hook was placed under this proximal fascial edge. A series of hamate finders were used to identify and dilate the carpal tunnel. Synovial elevator was used to free synovial attachments to the underside of the transverse carpal ligament. My thumb was kept in the palm to elvira the distal extent of the carpal tunnel and correctly position the hand. The Microaire endoscope was inserted without difficulty and without resistance. Excellent visualization showed horizontally running fibers of the transverse carpal ligament (TCL). The distal extent of the TCL was visualized and the end of the scope palpated with the thumb. The blade was elevated and withdrawn from distal to proximal. The TCL was split into two flaps. The endoscope was reinserted to confirm complete release and any remnant ligament was incised. The scope was withdrawn and the proximal aspect of the carpal tunnel was grossly inspected and appeared release with the median nerve visible. The antebrachial fascia at the level of the wrist was then freed from the overlying skin and then the underlying median nerve with blunt dissection. This was transected longitudinally for about 3cm proximal to the wrist incision. The wound was then irrigated with easy flow of irrigant distally and proximally. The incision was closed with a single 4-0 Nylon suture. The wound was dressed with Xeroform, Gauze, Kerlix and Duncan. The tourniquet was deflated with the initial dressing and held with some pressure. Blood flow returned easily to all digits with capillary refill less than 2 seconds. The patient tolerated the p rocedure well and was returned to the Same Day Surgery area in a stable condition suffering no known complication.
== END 2021-06-07 08:32 | disposition home or self-care (01) ==
PROVIDERS: PCP Physician Assistant Medical; Visit Provider Student in an Organized Health Care Education/Training Program
PROC: 01N54ZZ Release Median Nerve, Percutaneous Endoscopic Approach (ICD-10-PCS; CPT 29848; principal; 2021-06-07 07:30)
DX: G56.02 Carpal tunnel syndrome, left upper limb (principal); E03.9 Hypothyroidism, unspecified; I10 Essential (primary) hypertension; Z87.891 Personal history of nicotine dependence
CPT/HCPCS: 29848; 81025; J0690; J2704

== ENCOUNTER 2022-02-07 15:16 | Outpatient (REF) | payer MEDICAID, SELFPAY ==
[2022-02-07 16:45] LABS: Anion Gap 9.1 mmol/L (3-11); BUN 9 mg/dL (7-18); CO2 25.9 mmol/L (21.0-32.0); CREATININE 0.8 mg/dL (0.55-1.02); Calcium 8.9 mg/dL (8.5-10.1); Calculated LDL 128 mg/dL (<100); Chloride 105 mmol/L (98-107); Cholesterol 204 mg/dL (<200); Glucose 92 mg/dL (74-106); HDL Cholesterol 53 mg/dL (40-60); Potassium 3.9 mmol/L (3.5-5.1); Sodium 140 mmol/L (136-145); TSH 15.49 uIU/mL (0.36-3.74); Triglyceride 117 mg/dL (<150)
[2022-02-07 17:35] LABS: Hemoglobin A1C 5.4 % (<5.7)
[2022-02-08 09:31] LABS: FREE T4 0.99 ng/dL (0.76-1.46)
[2022-02-08 17:34] LABS: T3, Total 110 ng/dL (97-169)
== END 2022-02-07 15:17 | disposition home or self-care (01) ==
LOC: NCHCN 15:16
PROVIDERS: PCP Physician Assistant Medical; Visit Provider Physician Assistant Medical
DX: E03.9 Hypothyroidism, unspecified; I10 Essential (primary) hypertension; Z86.32 Personal history of gestational diabetes
CPT/HCPCS: 80048; 80061; 83036; 84439; 84443; 84480

== ENCOUNTER 2022-03-21 16:41 | Outpatient (REF) | payer MEDICAID, SELFPAY ==
[2022-03-21 16:06] LABS: TSH 12.25 uIU/mL (0.36-3.74)
== END 2022-03-21 16:42 | disposition home or self-care (01) ==
LOC: NCHCN 16:41
PROVIDERS: PCP Physician Assistant Medical; Visit Provider Physician Assistant Medical
DX: E03.9 Hypothyroidism, unspecified (principal)
CPT/HCPCS: 84443

== ENCOUNTER 2022-06-01 10:36 | Outpatient (REF) | payer MEDICAID, SELFPAY ==
--- NOTE | 2022-06-01 09:30 | SKI_PTH ---
PATIENT: Clarita Smith LOC: [facility] U#:[id number] AGE/SX: 46/F ROOM: RE06/01/[address]: Ted Quintero MD : [id number] BED: DIS: 06/01/2022 SPEC #: [id number] RECD: 06/01/22 17:18 STATUS: JONAH RELiya #: [id number] SIRENA: 06/01/22 09:[address]: Ted Quintero DEPT: Surgical Specimen RECD BY: India Sanchez ENTERED: 06/01/22 17:18 SP TYPE: ANEESH MCPHERSON DR: Jose Antonio Harden Tissues: 1 - SKIN BIOPSY(SHAVE/PUNCH) Procedures: SKIN LEVEL 4 Comments: [id number]
== END 2022-06-01 10:37 | disposition home or self-care (01) ==
LOC: LBN 10:36
PROVIDERS: PCP Physician Assistant Medical; Visit Provider Otolaryngology
DX: D23.22 Other benign neoplasm of skin of left ear and external auricular canal (principal)
CPT/HCPCS: 88305

== ENCOUNTER 2022-10-03 18:14 | Outpatient (REF) | payer MEDICAID, SELFPAY ==
[2022-10-03 20:05] LABS: ESR 10 mm/hr (0-20)
[2022-10-03 20:06] LABS: Hemoglobin A1C 5.4 % (<5.7)
[2022-10-03 20:07] LABS: C-Reactive Protein 0.35 mg/dL (0.0-0.3); FREE T4 1.26 ng/dL (0.76-1.46); TSH (W/Ref FT4) 0.28 uIU/mL (0.36-3.74)
[2022-10-04 18:28] LABS: T3, Total 125 ng/dL (97-169)
[2022-10-04 19:48] LABS: Prolactin 13.3 ng/mL (See Note)
== END 2022-10-03 18:15 | disposition home or self-care (01) ==
LOC: NCHCN 18:14
PROVIDERS: PCP Physician Assistant Medical; Visit Provider Physician Assistant Medical
DX: L40.59 Other psoriatic arthropathy (principal); E03.9 Hypothyroidism, unspecified; Z86.32 Personal history of gestational diabetes; N64.4 Mastodynia
CPT/HCPCS: 85652; 83036; 84146; 84439; 84443; 84480; 86140

== ENCOUNTER 2022-10-23 00:36 | Outpatient (CLI) | payer MEDICAID, SELFPAY ==
--- NOTE | 2022-10-23 | DI.MAMMO_ITS ---
Exam(s) MAMMO SCREENING EXAM: MAMMO SCREENING CLINICAL HISTORY: SCREENING FOR BREAST CANCER Z12.31 [facility] Z00.00 TECHNIQUE: Bilateral full field digital CC and MLO mammographic images were obtained with 3D tomosyn thesis and utilizing computer aided detection (CAD). COMPARISON: Available for comparison. FINDINGS: Masses/Architectural Distortion: There is a new partially obscured nodule in the upper outer quadrant of the right breast measuring 9 mm and located 11 cm from the nipple. There are no areas of archite ctural distortion. Microcalcifications: No suspicious pleomorphic-type are seen. Skin Thickening/Nipple Retraction: None. IMPRESSION: 1. New partially obscured 9 mm nodule in the upper outer quadrant of the right breast. 2. Further evaluation with spot compression views is recommended. A targeted limited right breast ul trasound may also be indicated at that time. BI-RADS Category 0 - Assessment Incomplete: Need additional imaging evaluation Breast Density - Category B - Scattered areas of fibroglandular density Breast density category C or D implies that the patient has dense breast tissue. Dense breast tissue is very common and is not abnormal but dense breast tissue can make it harder to find cancer on a ma mmogram. Also, dense breast tissue may increase their breast cancer risk. This information about the result of the mammogram report was provided to the patient to raise their awareness. Use this report when you speak with the patient about their risks for breast cancer, which includes their family hist ory. At that time, you may recommend for more screening tests (Ultrasound or MRI) as they might be us eful based on their risk. A negative radiographic report should not delay biopsy if a dominant or clinically suspicious mass is present. Up to ten percent of cancers are not identified on mammography. A negative report may reinforce clinical impression. Adenosis and dense breasts may obscure an underlying neoplasm. False positive reports average 6 to 10%. Patient will receive a letter notifying them of these results.
== END 2022-10-23 00:56 ==
LOC: DI 00:36
PROVIDERS: PCP Physician Assistant Medical; Visit Provider Physician Assistant Medical
DX: Z12.31 Encounter for screening mammogram for malignant neoplasm of breast (principal); N63.11 Unspecified lump in the right breast, upper outer quadrant
CPT/HCPCS: 77063; 77067

== ENCOUNTER 2022-10-30 00:44 | Outpatient (CLI) | payer MEDICAID, SELFPAY ==
--- NOTE | 2022-10-30 10:00 | DI.MAMMO_ITS ---
Exam(s) MG MAMMO SCREEN CALL BACK UNI US BREAST RT COMPLETE EXAM: MG MAMMO SCREEN CALL BACK UNI-RIGHT AND COMPLETE RIGHT BREAST ULTRASOUND CLINICAL HISTORY: NODULE RT BREAST NODULE R92.8 ABNL MAMMO. TECHNIQUE: Unilateral spot mammographic images obtained with 3D tomosynthesisand utilizing computer aided detection (CAD). . Complete RIGHT breast Ultrasound was also performed, including all 4 quadrants, the retroareolar vanessa on, and the ipsilateral axilla. COMPARISON: Prior mammograms were reviewed. This additional imaging was performed due to findings described on the recent screening mammogram of 10/23/2022. FINDINGS: DIAGNOSTIC MAMMOGRAM: Additional mammographic views performed todaydoes not dissipate the nodule of concern described on th e recent mammogram study. COMPLETE RIGHT BREAST ULTRASOUND: Ultrasound performed today reveals 2 separate findings. At the 9 o'clock position there is 10 x 6 m illimeter cyst which corresponds to the finding on the mammogram. At the 12 o'clock position there is another finding which is a microcyst measuring 3 x 3 mm. No solid lesions seen in all 4 quadrants Scanning of the ipsilateral axilla reveals no significant adenopathy. IMPRESSION: 1. There are 2 small cysts in the right breast, 1 of which corresponds to the new finding on the julius mogram. This is at approximately the 9 o'clock position. Another smaller 3 millimeters cyst is note d at the 12 o'clock position. Appropriate follow-up is repeat mammogram in 6 months. The patient was informed of these findings and recommendations prior to leaving the department today. BI-RADS Category 3 - 6 month - Probably Benign Finding: Recommend follow-up mammography in 6 months Breast Density - Category B - Scattered areas of fibroglandular density Breast density Category C or D implies that the patient has dense breast tissue. Dense breast tissue can make it harder to find cancer on a mammogram. Dense breast tissue is also associated with an incr eased risk of breast cancer. This information about the result of the mammogram report was provided to the patient to raise their awareness. Use this report when you speak with the patient about their risks for breast cancer, which includes their family history. At that time, you may recommend additional screening tests (Ultrasoun d or MRI) as these tests may add significant information. A negative radiographic report should not delay biopsy if a dominant or clinically suspicious mass is present. Up to ten percent of cancers are not identified on mammography. A negative report may reinforce clinical impression. Adenosis and dense breasts may obscure an underlying neoplasm. False positive reports average 6 to 10%. Patient will receive a letter notifying them of these results.
== END 2022-10-30 01:04 ==
LOC: DI 00:44
PROVIDERS: PCP Physician Assistant Medical; Visit Provider Physician Assistant Medical
DX: R92.8 Other abnormal and inconclusive findings on diagnostic imaging of breast (principal)
CPT/HCPCS: 76642; 77063; 77067

== ENCOUNTER 2022-11-20 09:43 | Outpatient (REF) | payer MEDICAID, SELFPAY ==
[2022-11-20 17:31] LABS: TSH 0.69 uIU/mL (0.36-3.74)
== END 2022-11-20 09:44 | disposition home or self-care (01) ==
LOC: NCHCN 09:43
PROVIDERS: PCP Physician Assistant Medical; Visit Provider Physician Assistant Medical
DX: E03.9 Hypothyroidism, unspecified (principal)
CPT/HCPCS: 84443

== ENCOUNTER → 2023-04-23 02:54 | Outpatient (CLI) | payer MEDICAID, SELFPAY ==
--- NOTE | 2023-04-23 | DI.MAMMO_ITS ---
Exam(s) MG MAMMO DIAGNOSTIC UNI EXAM: MG MAMMO DIAGNOSTIC UNI CLINICAL HISTORY: 6 MO F/U RT MAMMO, F/U ABNL MAMMO TECHNIQUE: Right cc and MLO mammogram images were performed according to the usual protocol [facility] ng computer analysis with CAD system, tomosynthesis and C-view imaging. COMPARISON: MG MG MAMMO SCREENING from 03/16/2020 MG MG MAMMO SCREENING from 10/23/2022 MG MG MAMMO SCREEN CALL BACK UNI from 10/30/2022 US US BREAST RT COMPLETE from 10/30/2022 FINDINGS: The right breast is composed of scattered fibroglandular densities, Breast Density category B. No suspicious masses or suspicious microcalcifications are seen. There is a stable area of nodularit y in the lateral right breast which corresponds to a cyst on the prior ultrasound. An additional are a of nodularity is seen the 12 o'clock position. This also corresponded to a cyst on ultrasound.. No skin thickening or abnormal axillary lymph nodes are seen. IMPRESSION: BI-RADS Cat 2 - Benign Findings Bilateral screening mammography is recommended, due in 6 months.. Breast Density - Category B, scattered fibroglandular densities. A negative radiographic report should not delay biopsy if a dominant or clinically suspicious mass is present. Up to ten percent of cancers are not identified on mammography. A negative report may reinforce clinical impression. Adenosis and dense breasts may obscure an underlying neoplasm. False positive reports average 6 to 10%. Patient will receive a letter notifying them of these results.
== END ==
PROVIDERS: PCP Physician Assistant Medical; Visit Provider Physician Assistant Medical
DX: Z12.31 Encounter for screening mammogram for malignant neoplasm of breast (principal); R92.8 Other abnormal and inconclusive findings on diagnostic imaging of breast
CPT/HCPCS: 77061; 77065; G0279

== ENCOUNTER 2023-08-21 08:31 | Emergency (ER) | payer MEDICAID, SELFPAY ==
[2023-08-21 08:34] VITALS: BP 174/90; PULSE 68; RESP 17; TEMP 36.7; O2SAT 100
--- NOTE | 2023-08-21 08:45 | DI.CT_ITS ---
Exam(s) CT CHEST/ABD/PEL W EXAM: CT CHEST/ABD/PEL W CLINICAL HISTORY: fall, luq pain post fall skiing. TECHNIQUE: Imaging Protocol: Axial computed tomography images with coronal and sagittal reformatted images were created and reviewed CONTRAST MATERIAL: Intravenous: Omnipaque 350 Contrast volume:100 ml Oral: / no COMPARISON: CT CT CHEST PE CTA from 12/16/2020 FINDINGS: CHEST: Tracheobronchial tree: Patent where visualized. Pulmonary parenchyma: No consolidation or dominant measurable mass. Pleura: No effusion or pneumothorax. Lymph nodes: Within normal limits. Aorta: Thoracic portion non-dilated. Heart: No pericardial effusion. Bones: Unremarkable for age. No lytic or blastic lesions.No compression fractures. No visible rib f racture. Soft tissues: Unremarkable. ABDOMEN and PELVIS: Liver: Normal density. No measurable mass. Gallbladder and biliary tract: Large gallstone again noted. No wall thickening. No biliary dilatati on. Pancreas: Normal density, no abnormal calcifications or inflammatory process. Spleen: Normal. Kidneys: Normal size, contour and axis. No radiodense stones. No obstructive uropathy. No suspicious masses seen. Adrenal glands: No masses seen. Aorta: Abdominal portion non-dilated. Mild atherosclerotic changes. Lymph nodes: Within normal limits. Soft tissues: Unremarkable. Bladder: Unremarkable. Bowel: No obstruction or bowel wall thickening. Appendix normal. Peritoneal cavity: No ascites. No focal collection. No mesenteric inflammatory response. Bones: Unremarkable for age. Reproductive organs: Within normal limits. IUD. IMPRESSION: No acute abnormality in the chest, abdomen or pelvis.. RADIATION DOSE DELIVERED: 1,966.97mGy.cm Total DLP DATA REPOSITORY: All CT scans at this facility are submitted to the National Radiology Data Registry (NRDR) Dose Index Registry (DIR) with the [employer] (A[employer]). RADIATION OPTIMIZATION: All CT scans at this facility use at least one of these dose optimization te chniques: automated exposure control; mA and/or kV adjustment per patient size (includes targeted exa ms where dose is matched to clinical indication); or iterative reconstruction.
[2023-08-21 09:21] LABS: Bilirubin Negative (Negative); Blood Negative (Negative); Clarity Clear (Clear); Glucose Negative (Negative); Ketones Negative (Negative); Leukocyte Esterase Negative (Negative); Nitrite Negative (Negative); Specific Gravity 1.015 (1.005-1.025); Urobilinogen 0.2 mg/dL (Up to 0.2); pH 7.5 (5-8)
--- NOTE | 2023-08-21 09:43 | W.ED.GENAD ---
HPI General Date/Time Provider Initiated Documentation: 08/21/23 08:39. HPI Narrative: This 48-year-old female presents 1 week after a fall while skiing, landing on her left chest. Was wearing a helmet denies any head injury or any additional injuries, presents today secondary to worsening pain in left upper abdomen and chest wall. Denies any shortness of breath, denies history of coagulopathy or chance of . Denies any neck pain. Related Data Home Medications Medication Instructions Recorded Confirmed levonorgestrel 21 mcg/24 hours (8 1 ea intrauterine 12/17/17 06/01/22 yrs) 52 mg intrauterine device (Mirena) acetaminophen 500 mg tablet 1,000 mg (2 x 500 mg) PO Q8H PRN 06/07/21 08/21/23 pain #60 tabs ibuprofen 600 mg tablet 600 mg PO TID PRN pain #90 tabs 06/07/21 08/21/23 levothyroxine 200 mcg capsule 200 mcg PO DAILY 05/31/22 08/21/23 diazepam 5 mg tablet (Valium) 5 mg PO BID PRN #10 tabs 08/21/23 Previous Rx's Medication Instructions Recorded acetaminophen 500 mg tablet 1,000 mg (2 x 500 mg) PO Q8H PRN 06/07/21 pain #60 tabs ibuprofen 600 mg tablet 600 mg PO TID PRN pain #90 tabs 06/07/21 diazepam 5 mg tablet (Valium) 5 mg PO BID PRN #10 tabs 08/21/23 Allergies Allergy/AdvReac Type Severity Reaction Status Date / Time methotrexate Allergy Intermediate Verified 06/01/22 08:53 latex Allergy Unknown Verified 06/01/22 08:53 General Stated Complaint: Chest/Rib HAILEY: 3 Course Vital Signs Vital signs: Vital Signs Temperature 36.7 C 08/21/23 08:34 Pulse 68 08/21/23 08:34 Respiratory Rate 17 08/21/23 08:34 Blood Pressure 174/90 H 08/21/23 08:34 Pulse Oximetry 100 08/21/23 08:34 Temperature 36.7 C 08/21/23 08:34 Pulse 68 08/21/23 08:34 Respiratory Rate 17 08/21/23 08:34 Respiratory Effort Normal, Short of Breath 08/21/23 09:22 Respiratory Depth Normal 08/21/23 09:22 Respiratory Pattern Normal 08/21/23 09:22 Blood Pressure 174/90 H 08/21/23 08:34 Blood Pressure Position Supine 08/21/23 08:34 Pulse Oximetry 100 08/21/23 08:34 Oxygen Delivery Method Room Air 08/21/23 08:34 Oxygen Flow Rate 0 08/21/23 08:34 Pain Level 3 08/21/23 08:34 Lab/Test Results Lab/Test Results: Laboratory Tests Range/Units 08/21/23 09:14 Urine Color (Yellow) Yellow Urine Clarity (Clear) Clear Urine pH (5-8) 7.5 Ur Specific [place] (1.005-1.025) 1.015 Urine Protein (Negative) mg/dL Negative Urine Ketones (Negative) mg/dL Negative Urine Blood (Negative) Negative Urine Nitrite (Negative) Negative Urine Bilirubin (Negative) Negative Urine Urobilinogen (Up to 0.2) mg/dL 0.2 Ur Leukocyte Esterase (Negative) Negative Urine Glucose (Negative) mg/dL Negative POC- Test(urine) Negative Medical Decision Making 48-year-old female with left chest and abdominal pain after skiing accident 1 week ago Significant pain on assessment, tenderness to left chest wall and left upper quadrant, CT chest abdomen pelvis ordered for further evaluation Adamantly denies any head injury or neck pain Otherwise reportedly healthy, no visible sign of trauma, lungs clear to auscultation, neurovascularly intact GCS 15, no cervical spine tenderness, no flank bruising or tenderness appreciated CT does not show evidence of acute pathology per radiology interpretation my review, labs reassuring Patient will be discharged home with small amount of Valium Return precautions reviewed and patient expressed understanding Quality:SDOH Health Related Social Needs: No Data to Display PFSH All Active Problems (Updated 08/21/23 @ 10:43 by [facility]) Contusion of front wall of thorax (Acute) Acute serous otitis media, left ear (Acute) Lesion of external ear canal (Acute) Rectal bleed (Acute) External hemorrhoids (Acute) Chest pain (Acute) Fatigue (Acute) Hypertension (Chronic) Medical History (Updated 08/21/23 @ 10:43 by [facility]) Psoriasis Toe infection Carpal tunnel syndrome Elevated CPK Chest discomfort Cholelithiasis Macromastia Salivary gland disorder Cough Snoring Otitis externa Depression Hypothyroidism Perioral dermatitis Psoriasis of scalp Tobacco abuse Lymphadenopathy Hemorrhoids Erythema multiforme Jaw pain Seasonal allergies Gestational diabetes Psoriatic arthritis Bilateral carpal tunnel syndrome Fatigue Muscle cramps Skin tag Surgical History Dilation and curettage (01/16/16) SEVERED CORD AFTER DELIVERY OF , RETAINED PLACENTA. History of colposcopy Hx of tonsillectomy Family History Mother Diabetes Father No problems noted. 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 Pets and animals: Yes Pets and animals: guinea pig(s) Current gender identity: female What is your relationship status?: refused to answer Panel score (0-1 are the most socially isolated patients): 0 What type of physical activity do you participate in: walking Seatbelt use: always Do you feel safe at home: Yes Do you feel safe in your relationship?: Yes Discharge Plan Disposition Patient Disposition: Home Discharge Details Clinical Impression: Contusion of front wall of thorax Primary Care Provider: Jose Antonio Harden ED Provider: India Osborne Meds and New Rx's Prescriptions: New diazepam [Valium] 5 mg tablet 5 mg PO BID PRNQty: 10 0RF Continued levothyroxine 200 mcg capsule 200 mcg PO DAILY Mirena 1 EACH intrauterine device 1 ea Intrauterine acetaminophen 500 mg tablet 1,000 mg PO Q8H PRN (Reason: pain) Qty: 60 3RF ibuprofen 600 mg tablet 600 mg PO TID PRN (Reason: pain) Qty: 90 3RF Discharge Instructions Instructions: Contusion in Adults (ED) Additional Instructions: Take the Valium sparingly, you can use this for musculoskeletal pain as needed, this may work best at night Do not combine with alcohol This medication can be addictive Take ibuprofen 400 to 600 mg every 8 hours with food Take Tylenol for as needed for discomfort Return with worsening pain, persistent pain, or should you have any new concerns Continue to take deep breaths you do not develop pneumonia Referrals: Jose Antonio Harden PA [Primary Care Provider] - Discharge Data Discharge Date/Time-TO BE ENTERED AT DEPARTURE: 08/21/23 10:58
[2023-08-21 09:46] LABS: Abs Immature Grans 0.04 10^3/uL (0.0-0.06); Absolute Basophil Count 0.03 10^3/uL (0.0-0.2); Absolute Eosinophil Count 0.09 10^3/uL (0.0-0.7); Absolute Lymphocyte Count 1.77 10^3/uL (1.2-3.4); Absolute Monocyte Count 0.49 10^3/uL (0.1-0.8); Absolute Neutrophil Count 3.65 10^3/uL (1.2-6.7); Basophils % 0.5; Eosinophils % 1.5; Immature Grans % 0.7; Lymphocytes % 29.2; MCH 31.6 pg (27.0-33.0); MCHC 34.9 % (32.0-36.0); MCV 91 fL (80-95); MPV 9.1 fL (8.0-11.0); Monocytes % 8.1; Platelet Count 287 10^3/uL (130-400); RBC 4.75 10^6/uL (3.93-5.22); RDW 11.1 % (11.7-14.6); RDW-SD 37.3 fL; WBC 6.07 10^3/uL (4.4-10.8)
[2023-08-21] MEDS: Omnipaque 350 MG/ML 100 ML BTL IJ (09:56)
[2023-08-21] MEDS: MORPHine 4 MG/ML SYR IVP (09:58)
[2023-08-21] MEDS: Normal Saline - Diluent 50 ML VIAL IJ (09:58)
[2023-08-21 10:10] LABS: ALT 28 U/L (14-59); AST 17 U/L (15-37); Albumin 3.8 g/dL (3.4-5.0); Alkaline Phosphatase 72 U/L (46-116); Anion Gap 8.5 mmol/L (3-11); BUN 8 mg/dL (7-18); Bilirubin, Total 0.5 mg/dL (0.2-1.0); CO2 29.5 mmol/L (21.0-32.0); CREATININE 0.7 mg/dL (0.55-1.02); Calcium 9.5 mg/dL (8.5-10.1); Chloride 104 mmol/L (98-107); Estimated GFR 107.28 (mL/min/1.73m2); Glucose 99 mg/dL (74-106); Lipase 14 U/L (16-77); Potassium 4.1 mmol/L (3.5-5.1); Sodium 142 mmol/L (136-145); Total Protein 7.8 g/dL (6.4-8.2)
[2023-08-21 10:50] VITALS: BP 135/73; PULSE 64; RESP 16; TEMP 36.5; O2SAT 100
== END 2023-08-21 10:58 | disposition home or self-care (01) ==
PROVIDERS: Emergency Provider Physician Assistant; PCP Physician Assistant Medical
DX: S20.212A Contusion of left front wall of thorax, initial encounter (principal); W00.0XXA Fall on same level due to ice and snow, initial encounter; Y93.23 Activity, snow (alpine) (downhill) skiing, snowboarding, sledding, tobogganing and snow tubing; Y92.838 Other recreation area as the place of occurrence of the external cause
CPT/HCPCS: 74177; 80053; 81025; 83690; 86850; 86900; 86901; 99285; 71260; 81003; 85025; 99284; J2270; J3490

== ENCOUNTER 2024-04-08 12:12 | Outpatient (REF) | payer MEDICAID, SELFPAY ==
--- OUTSIDE RECORDS SUMMARY | 2024-04-08 12:14 | XMS_ITS | Encounter Summary ---
Author Organization [facility] Address [facility] [place] [address] Care Team Providers Care Opinion Polls Survey Worker Name Role Phone Jose Antonio Harden Primary Care Provider [phone]- [phone] Reason for Visit * Reason Comments Dermatitis Psoriasis * Consultation (Routine) - Closed Specialty Diagnoses / Procedures Referred By Irma sharif Referred To Contact Dermatology Diagnoses psoriasis/contact dermatitis Shraddha Lacy MD [facility] RHEUMATOLOGY [address] [place] [id number] [facility] Dermatology [address] [place] [address] Referral ID Status Reason Start Date Expiration Date V isits Requested Visits Authorized [id number] Closed Consult, Test & Treat Connection Center 03/11/2018 03/11/2019 1 1 Encounter Details Date Type Department Care Team ([facility] st Contact Info) Description 05/13/2018 10:45 AM EDT Office Visit Dermatology at [facility] [address] [place] [address] Gayatri Garcia MD [facility] [address] [place] [address] Hand dermatitis; Tinea pedis of both feet; Psoriasis; Onychomycosis Social History Tobacco Use Types Packs/Day Years Used Date Smoking Tobacco: Former Cigarettes Q uit: 11/02/2012 Smokeless Tobacco: Never Alcohol Use Standard Drinks/Week Comments No 0 (1 standard drink = 0.6 oz pur e alcohol) Comments Yes Sex and Gender Information Value Date Recorded Sex Assigned at Not on file Gender Identity Not on file Sexual Orientation Not on file documented as of this encounter Progress Notes * Gayatri Garcia MD - 05/13/2018 10:45 AM EDT DERMATOLOGY OUTPATIENT CLINIC NOTE Date of service: 05/13/2018 Magdalene Smith : 1975 Provider: Gayatri Garcia MD PROBLEM: psoriasis and contact dermatitis SKIN HISTORY: Psoriatic arthritis HPI Magdalene Smith is a 42 y.o. female. She is a new pt to me and the clinic. She presents for psoriasis and she was diagnosed with Psoriatic arthritis. She mentioned when she had her daughter a few years ago she was covered with scale. She states the arthritis part is resolved but she continues to have scale on the knees and ? Hands. She has noiced her hands are cracking, sore. She states she wason Methotrexate that seemed to help until she started loosing her hair. She had psoriasis in the scalp and that seems to be cleared. She wears gloves at work and wears lotions and she denies any topical treatment on the knees. She has had issues with her face and was put on protopic and believes she has rosacea. She has been using Rhodanine fielded smooth and it seems to help. She believes she has toenail fungus. Declines a full skin exam. 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 folic acid (FOLVITE) 1 mg Tablet 0 ??? buPROPion (WELLBUTRIN SR) 100 mg tablet sustained-release 12 hr 0 ??? diclofenac (VOLTAREN) 75 mg Tablet, Delayed Release (E.C.) take 1 tablet by mouth once daily with food or MILK 0 ??? ergocalciferol, vitamin D2, (VITAMIN D ORAL) Take by mouth. ??? BIOTIN ORAL Take by mouth. ??? multivitamin (THERAGRAN) Tablet Take 1 tablet by mouth daily. ??? ibuprofen (ADVIL;MOTRIN) 200 mg Tablet Take 200 mg by mouth every 6 hours as needed for Pain. ??? levothyroxine (SYNTHROID) 125 mcg Tablet 0 No current facility-administered medications for this visit. PROBLEM LIST: Patient Active Problem List Diagnosis Code ??? Obesity E66.9 ??? Gestational diabetes O24.419 ??? Acquired hypothyroidism E03.9 ROS General: feeling well. Oriented X 3. Skin: denies other skin complaints EXAM General: NAD, pleasant, cooperative Skin: Focused skin exam of the had, neck, scalp, arms, hands, legs and feet Significant skin findings: - Bilateral hands: Lichenified and slightly eczematous patches - Plantar feet diffuse scaling and dystrophy with all ten toes - Bilateral knees: slightly hyperkeratotic plaques ASSESSMENT/PLAN Hand dermatitis, mild - Discussed wearing gloves while working with chemicals. 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 She also is often using chemical to dye hair- recommended daily use of gloves - Start Triamcinolone ointment: Apply to the bilateral hands BID for 2 weeks on then 1 week off repeat as needed. Tinea Pedis / Athletes foot and onychomycosis - Start Ketoconazole cream: Apply twice a day to bilateral feet until clear, then once to twice a week for maintenance. - OTC Godley for athletes feet, spray shoes. - we discussed the difficulty of treating onychomycosis, especially in the setting of active tinea pedis. She will treat the tinea pedis and next year we can discuss in more detail the treatment of onychomycosis. She will likely need oral treatment. Psoriasis, <1% BSA. She has been off MTX for 1 year and denies any joint pains - Discussed using Rx: Triamcinolone ointment to the areas as directed above. - Call if the plaques get worse or she notices any more appearing or even on the scalp. RTC - 1 year full skin exam or sooner if problems arise. Note initiated and routed to physician for review and change by: CHEYENNE CAMPOS LPN and I, have performed the documentation for this encounter in the presence of andacting as a scribe for Gayatri Garcia MD. I, Dr. Gayatri Garcia, performed the visit service though my nurse assisted me in scribing the note. I reviewed and edited this note above, a scribed service performed by my nurse. On closure of this note I agree with the accuracy of the documentation. Gayatri Garcia MD Section of Dermatology [facility] documented in this encounter Plan of Treatment Not on file documented as of this encounter Visit Diagnoses Diagnosis Hand dermatitis Contact dermatitis and other eczema, due to unspecified cause Tinea pedis of both feet Psoriasis Other psoriasis Onychomycosis Dermatophytosis of nail documented in this encounter Care Teams Opinion Polls Survey Worker Relationship Specialty Start Date End Date Jose Antonio Harden PA [address] [place] [address] PCP - General Family Medicine 08/04/16 03/02/20 documented as of this encounter
--- OUTSIDE RECORDS SUMMARY | 2024-04-08 12:14 | XMS_ITS | Encounter Summary ---
Author Organization [facility] Address [facility] [place] [address] Care Team Providers Care Care Director Name Role Phone Jose Antonio Harden Primary Care Provider [phone]- [phone] Reason for Visit * Consultation (Routine) - Closed Specialty Diagnoses / Procedures Referred By Irma t Referred To Contact Rheumatology Diagnoses BERNADETTE PsA, needs March appt Shraddha Lacy MD [facility] RHEUMATOLOGY [address] [place] [id number] Uma Huff MD [facility] [place] [address] Referral ID Status Reason Start Date Expiration Date Visits Re quested Visits Authorized [id number] Closed 12/17/2018 12/17/2019 1 1 Encounter Details Date Type Department Care Team (Late st Contact Info) Description 03/27/2019 12:00 PM EDT [place] [address] Uma Huff MD [facility] [place] [address] Psoriasis with arthropathy; Positive BREANNE (antinuclear antibody) Social History Tobacco Use Types Packs/Day Years [...] on file documented as of this encounter Last Filed Vital Signs Vital Sign Reading Time Taken Comments Blood Pressure 131/79 03/27/2019 11:38 AM EDT Pulse 66 03/27/2019 11:38 AM EDT Temperature 36.6 ??C (97.8 ??F) 03/27/2019 11:38 AM E DT Respiratory Rate - - Oxygen Saturation 100% 03/27/2019 11:38 AM EDT Inhaled Oxygen Concentration - - Weight 104.8 kg (231 lb) 03/27/2019 11:38 AM EDT Height 160 cm (5' 3) 03/27/2019 11:38 AM EDT Body Mass Index 40.92 03/27/2019 11:38 AM EDT documented in this encounter Patient Instructions * Patient Instructions* Uma Hfuf MD - 03/27/2019 12:00 PM EDT Trial off diclofenac Taper folic acid to off documented in this encounter Progress Notes * Uma Huff MD - 03/27/2019 12:00 PM EDT Referred by: Shraddha Lacy For consultation and evaluation of: ?psoriatic arthritis I have reviewed the provided records, pertinent records available in the [facility] medical record and any forms completed by the patient. These have been scanned into the medical record for future review. Cc: feeling well HPI: 43 yo woman 3 years ago had a very traumatic with retained placenta with hemorrorhagic and multiple transfusions (at least 3 units PRBC). Shortly after that developed psoriaisis and joint pain-she is highly symptomatic within 2 to 3 months and within a year was practically debilitated. She had plaques on her elbows and on her knees and abdomen she did not have any uveitis and no Achilles involvement. She had a history of psoriasis since age 14, but this was minimal with small plaquesaround her scalp and had only ever been treated with topicals. She believes she also had enlarged lymph nodes at that time. She had pain in multiple joints, worse in the morning swelling especially at PIPs on her left hand, but not wily dactylitis. NSAIDs provided incomplete relief. She waited for1 year of treatment to be finished with breast-feeding. She was treated with prednisone and had marked improvement in all of her symptoms. She was then referred to Shraddha Lacy in [place] for further management. Started on MTX 15mg weekly and she developed extensive hair loss despite the use of l eucovorin. Methotrexate resolved the rash and she is only had scant patches intermittently on her elbows and knees. She has a dermatitis on her hands and some scaling white rash on her feet that are not clearly psoriatic. She is prescribed topical steroids and antifungals to treat these as she was evaluated in dermatology at [facility] for a one-time visit.. Otherwise she feels well, and says she feels better than she ever has in her life. She continues totake diclofenac daily 75 mg and is taking folic acid 1 mg daily. Her hair loss has resolved. She isalso had some thyroid abnormalities that are improving. She denies bruising or prior episodes of bleeding. She is had some increased anxiety when her thyroid was over replaced in particular. 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 ROS: No Raynaud's No sicca No malar rash No sun sensitivity No CASTRO No vision change, red painful or swollen eyes No hearing loss or ear pain No epistaxis, no sinusitis or ulcers No oral ulcers or thrush No SOB or cough, no hemoptysis No CP or palpitations No abdominal pain or GI complaints including nausea, vomiting, diarrhea or constipation No urinary complaints No focal or global weakness No infections No unintentional weight loss or excessive fatigue Mood is stable Medications and allergies reviewed PMH: hemorrhage for retained placenta requiring transfusion in 2016 Hypothyroidism Obesity Plaque psoriasis skin disease since age 14 treated with topicals only Perioral dermatitis Positive BREANNE lab work-up in January 2017 BREANNE 1-6 40 BREANNE negative, ANCA negative, positive antithyroid antibodies, Lyme antibodies negative, rheumatoid factor negative tickborne disease panel negative SH: Two children ages 10 and 3 Former smoker-quit 6 years ago Drinks alcohol very rarely No pets 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 Alert and pleasant in NAD Skin: She has scant plaque on her left elbow and none noted at the hairline appears to be dry peeling skin on the palms of her hands and the soles of her feet Sclera anicteric, conjunctiva not injected Nares without d/c O/p Moist no lesions, ulcers or thrush Neck: no cervical adenopathy Lungs: CTAB Heart RRR no mrg Abd: Active bs, soft, nt, nd no masses or organomegaly appreciated Ext: no c/c/e pulses 2+ and symmetric at DP and radial No active synovitis throughout the upper or lower extremities neuro: grossly non-focal Labs/studies: See [facility] BREANNE 1: 640 in 02/01/2017 Rheumatoid factor negative ANCA negative Tickborne disease panel negative including Lyme JOSH negative Into double-stranded DNA negative Lupus anticoagulant studies negative Anticardiolipin negative C3 and C4 within normal limits Impression/Recommendations: This is a very pleasant 43-year-old woman who developed severe plaque psoriasis and arthritis approximately 2 months after multiple packed red cell transfusions for hemorrhage. The symptoms responded extremely well to prednisone and to methotrexate, although she had to stop the methotrexate to do to significant amounts of hair loss. This has resolved. The picture is complicated somewhat by thyroid disease. At this time she has been off methotrexate for about a year and it has been completely asymptomatic from a joint standpoint. The psoriatic plaques are also minimal. Was able to find at least a case report in the literature of psoriasis being transmitted by transfusion, where the donor had documented plaque disease. (See below). What is interesting is that case also resolved with time. At this time she has been off DMARD over a year with minimal symptoms and I would continue in that vein. She actually feels better than she is ever had. She can try going off the diclofenac to make sure that she does not in fact have any other symptoms. This would also help limit toxicity in the future. She will follow-up on an as- needed basis. The rest of her rheumatologic work-up in the past was unremarkable aside from the positive BREANNE which also could be altered due to transfusions. I do not see much cause to repeat it at this time however. These two cases highlight the fact that psoriasis can be transferred via BMT and blood transfusions. Given that the pathogenesis of psoriasis relies on constituents of the peripheral blood, it has been suggested that T-cells may be the source of psoriasis after blood transfusions, indicating that T-cells somehow transmit the morbidity factor(s) for psoriasis. However, peripheral T- cells have a relatively short lifespan, which indicates that the morbidity factor(s) for psoriasis is also short-lived, resulting in the psoriasis resolving after blood transfusion. PMID: [id number] Discontinue diclofenac and taper off folic acid. Follow-up as needed Thank you for this interesting referral. Please do not hesitate to contact me if you have any questions or concerns. documented in this encounter Plan of Treatment Not on file documented as of this encounter Visit Diagnoses Diagnosis Psoriasis with arthropathy Psoriatic arthropathy Positive BREANNE (antinuclear antibody) Other and unspecified nonspecific immunological findings documented in this encounter Care Teams Care Director Relationship Specialty Start Date End Date Jose Antonio Harden PA [address] [place] [address] PCP - General Family Medicine 08/04/16 03/02/20 documented as of this encounter
--- OUTSIDE RECORDS SUMMARY | 2024-04-08 12:14 | XMS_ITS | Clinical Summary ---
Author Organization [facility] Address [facility] [place] [address] Care Team Providers Care Harbor Boat Pilot Name Role Phone Jose Antonio Harden Primary Care Provider +1- [phone] Allergies Active Allergy Reactions Criticality Noted Date Comments Latex 03/27/2019 Methotrexate 03/27/2019 Hair loss Medications Medication Sig Dispensed Refills Start Date End Date Status ibuprofen (ADVIL;MOTRIN) 200 mg Tablet Take 200 mg by mouth every 6 hours as needed for Pain. Active folic acid (FOLVITE) 1 mg Tablet daily. 0 11/15/2017 Active diclofenac (VOLTAREN) 75 mg Tablet, Delayed Release (E.C.) take 1 tablet by mouth once daily with food or MILK 0 03/03/2018 Active triamcinolone (KENALOG) 0.1 % Ointment Apply to the bilateral hands and bilateral knees twice a day for 2 weeks on then 1 week off repeat as needed. 454 g 05/13/2018 Active Additional Information Patient not taking.Reported on 02/21/2021 ketoconazole (NIZORAL) 2 % Cream Apply twice a day to bilateral feet until clear, then once to twice a week for maintenance. 30 g 1 05/13/2018 Active Additional Information Patient not taking.Reported on 02/21/2021 fluticasone propionate (FLONASE) 50 mcg/actuation [place], Suspension prn 0 02/26/2019 Active levothyroxine (SYNTHROID) 137 mcg Tablet Take 137 mcg by mouth daily. Active buPROPion SR (Wellbutrin SR) 150 mg tablet sustained-release 12 hr Take by mouth. 11/24/2020 Active losartan (Cozaar) 50 mg Tablet TAKE 1 TABLET BY MOUTH EVERY DAY 02/09/2021 Active cholecalciferol, Vitamin D3, 25 mcg (1,000 unit) Capsule Take by mouth. 12/14/2020 Active ferrous sulfate 325 mg (65 mg iron) Tablet Take by mouth. 12/16/2020 Active Active Problems Problem Noted Date Diagnosed Date Macromastia 02/21/2021 Obesity 09/17/2015 Gestational diabetes 09/17/2015 Acquired hypothyroidism 09/17/2015 Family History Medical History Relation Comments Breast Cancer Neg Hx Social History Tobacco Use Types Packs/Day Years Used Date Smoking Tobacco: Former Cigarettes Q uit: 11/02/2012 Smokeless Tobacco: Never Alcohol Use Standard Drinks/Week Comments Yes 0 (1 standard drink = 0.6 oz pur e alcohol) occasional Sex and Gender Information Value Date Recorded Sex Assigned at Not on file Gender Identity Not on file Sexual Orientation Not on file Last Filed Vital Signs Vital Sign Reading Time Taken Comments Blood Pressure 131/79 03/27/2019 11:38 AM EDT Pulse 66 03/27/2019 11:38 AM EDT Temperature 36.6 ??C (97.8 ??F) 03/27/2019 11:38 AM E DT Respiratory Rate - - Oxygen Saturation 100% 03/27/2019 11:38 AM EDT Inhaled Oxygen Concentration - - Weight 99.8 kg (220 lb) 07/26/2021 10:53 AM EST Height 160 cm (5' 3) 07/26/2021 10:53 AM EST Body Mass Index 38.97 07/26/2021 10:53 AM EST Plan of Treatment Health Maintenance Due Date Last Done Comments CT Colonography 1976 Colonoscopy 1975 Colorectal Cancer Screening 1975 FIT DNA 1976 FIT 1975 Sigmoidoscopy (10 year) with FIT yearly 1975 Sigmoidoscopy 1975 HIV screen 1994 Hepatitis C Screening 1994 Lipid Screening 1994 Hepatitis B vaccine (0-59 yrs) (1) 1995 Tetanus/Diphtheria/Pertussis Vaccines (1 - Tdap) 08/18 HPV test 2006 PAP Smear 2006 Breast Cancer Share Decision Needed 2016 Breast Cancer screening 2016 Diabetes Screening (HgbA1C or Glucose) 2016 Covid-19 Vaccine ( season) 2024 Influenza (Flu) vaccine (1 o f 1 - Influenza standard series) 03/16/2024 Care Teams Harbor Boat Pilot Relationship Specialty Start Date End Date Jose Antonio Harden PA [address] [place] [address] PCP - General Family Medicine 11/26/20
--- OUTSIDE RECORDS SUMMARY | 2024-04-08 12:14 | XMS_ITS | Encounter Summary ---
[place] [address] Care Team Providers Care Supervisor Bottle Machines Name Role Phone Jose Antonio Harden Primary Care Provider +1- [phone] Encounter Details Date Type Department Care Team (Late st Contact Info) Description 01/24/2021 Telephone [place] [phone] Carissa Vigil Social History Tobacco Use Types Packs/Day Years [...] on file documented as of this encounter Plan of Treatment Not on file documented as of this encounter Visit Diagnoses Not on filedocumented in this encounter Care Teams Supervisor Bottle Machines Relationship Specialty Start Date End Date Jose Antonio Harden PA [address] [place] [address] PCP - General Family Medicine 11/26/20 documented as of this encounter
--- OUTSIDE RECORDS SUMMARY | 2024-04-08 12:14 | XMS_ITS | Encounter Summary ---
Author Organization [facility] [place] [address] Care Team Providers Care Crown Buffer Name Role Phone Jose Antonio Harden Primary Care Provider +1- [phone] Reason for Visit * Reason Comments Advice Only BBR - did watch RICHARD * Consultation (Routine) - Closed Specialty Diagnoses / Procedures Referred By Irma sharif Referred To Contact Plastic Surgery Diagnoses Hypertrophy of breast Jose Antonio Harden PA [address] [place] [address] [facility] [place] [facility] Surg [address] [place] [address] Referral ID Status Reason Start Date Expiration Date V isits Requested Visits Authorized [id number] Closed Consult, [facility] PCP Updated and/or Approved 01/10/2021 01/10/2022 12 12 Encounter Details Date Type Department Care Team (Late st Contact Info) Description 02/21/2021 10:15 AM EDT Office [place] [address] Estrada Lawson MD [facility] [place] [address] Macromastia Social History Tobacco Use Types Packs/Day Years Used Date Smoking Tobacco: Former Cigarettes Q uit: 11/02/2012 Smokeless Tobacco: Never Alcohol Use Standard Drinks/Week Comments Yes 0 (1 standard drink = 0.6 oz pur e alcohol) occasional Comments Yes Sex and Gender Information Value Date Recorded Sex Assigned at Not on file Gender Identity Not on file Sexual Orientation Not on file documented as of this encounter Last Filed Vital Signs Vital Sign Reading Time Taken Comments Blood Pressure - - Pulse - - Temperature - - Respiratory Rate - - Oxygen Saturation - - Inhaled Oxygen Concentration - - Weight 108.9 kg (240 lb) 02/21/2021 9:47 AM EDT Height 161.3 cm (5' 3.5) 02/21/2021 9:47 AM EDT Body Mass Index 41.85 02/21/2021 9:47 AM EDT documented in this encounter Progress Notes * Silvia Felix H - 02/21/2021 10:15 AM EDT Plastic Surgery Consultation Note Provider: Estrada Lawson M.D. PCP: [facility] Requesting Physician: as above Reason for office visit: Symptomatic macromastia HPI: Magdalene Smith is a 45 y.o. female who presents today for evaluation of symptomatic macromastia. She has had years of shoulder and neck pain associated with her breast size. She has had chronic issues with rashes under her breast and requires constant maintenance to prevent these rashes from occurring. She has difficulty finding bras that fit she often just wears 2 bras that she has had littlesuccess in having 1 bra be supportive enough. She has difficulty finding clothing to fit in oftentimes finds it is difficult to have tops to accommodate her breast size. She has had some difficulty exercising of late secondary to her breast size and even when she was exercising she noted she wore 3garments and that it still caused her significant discomfort. She notes she is being currently evaluated for bilateral carpal tunnel syndrome. She noted that she had an EMG that did not have evidenceof carpal tunnel syndrome and she is going to be evaluated by orthopedist in the near future. She has no neck trauma. Her most recent mammogram was in may 2020 and was normal. This was performed at [facility]. She has completed a breast specific questionnaire: Pertinent findings to emphasize are: No flowsheet data found. Breast Q Reduction PreOp 02/21/2021 Satisfaction with Breast 26 Psychosocial Wellbeing 28 Sexual well-being 23 Physical Well-being 42 How your breasts look in clothes? Somewhat dissatisfied How your breast size matches the rest of your body? Somewhat satisfied The size of your breasts? Very dissatisfied The shape of your breasts when you are wearing a bra? Very dissatisfied How equal in size your breasts are to each other? Somewhat dissatisfied How comfortably your bras fit? Very dissatisfied The shape of your breasts when you are not wearing a bra? Very dissatisfied How you look in the mirror clothed? Very dissatisfied How your breasts sit/hang on your chest? Very dissatisfied How normal your breasts look? Somewhat dissatisfied How you look in the mirror unclothed? Very dissatisfied Confident in a social setting? None of the time Of equal worth to other women? A little of the time Good about yourself? Some of the time Self-assured? A little of the time Confident in your clothes? None of the time Accepting of your body? None of the time That your appearance matches who you are inside? None of the time Confident about your body? None of the time Attractive? Some of the time Comfortable/at ease during sexual activities? None of the time Confident sexually? Some of the time Satisfied with your sex-life? None of the time Sexually attractive in your clothes? None of the time Sexy when unclothed? None of the time Headaches? Some of the time Pain in your breast area? None of the time Lack of energy? Some of the time Difficulty doing vigorous physical activities (e.g. running or exercising)? All of the time Feeling physically unbalanced? All of the time Shoulder pain? All of the time Difficulty sleeping because of discomfort in your breast area? Some of the time Neck pain? All of the time Painful gouges or grooves in your shoulders from your bra straps? All of the time Feeling physically uncomfortable? All of the time Rashes under your breasts? Some of the time Back pain? Some of the time Arm pain? Some of the time Pain, numbness or tingling in your hands because of your breast size? Some of the time Conservative Therapy Treatments: [facility]IVE THERAPY TREATMENTS 02/21/2021 Physical therapy was effective at relieving my symptoms. Never Tried Use of custom support bras relieved my symptoms. Never Tired Treatment by a chiropractor relieved my symptoms. Never Tried Weight loss relieved my symptoms. No Relief How many months did you try this treatment? More than 6 months Non-narcotic medications (such as Tylenol, Aspirin, Ibuprofen, Aleve, etc) have relieved my symptoms. Some Relief How many months did you try this treatment? More than 6 months Narcotic pain relievers (such as Tylenol #3, Percocet, etc) have relieved my symptoms. Never Tried Other Treatments have relieved my symptoms. Never Tried Over the counter or prescription medication has relieved the rashes under my breasts. Some Relief How many months did you try this treatment? More than 6 months Past Medical History: Diagnosis Date ??? Acquired hypothyroidism 09/17/2015 ??? Depression ??? HTN (hypertension) ??? Obesity Past Surgical History: Procedure Laterality Date ??? TONSILLECTOMY Family History Problem Relation Age of Onset ??? Breast Cancer Neg Hx Examination: BMI: Ht 161.3 cm (5' 3.5) Wt 108.9 kg (240 lb) BMI 41.85 kg/m?? BSA: Body surface area is 2.21 meters squared. General: On my examination today, the patient appears to be in good health. Her emotional outlook is positive and she asked appropriate questions throughout the visit. Breasts: Breast Measurements Right Left Ptosis III III SN-N (cm) 40 39.5 IMF-N (cm) 18.5 19 Base diameter 18 18 Masses no no Shoulder grooves y y Rash n n Axillary rolls y y Surgical Scars n n Breast Vol (estimate in cc) 2200 2400 Resection (estimate in gms) 1100 1200 Impression: Symptomatic bilateral breast hypertrophy. Bilateral breast reduction is indicated for relief of her breast-related symptoms. She watched the RICHARD video on breast reduction, and was provided with an [facility] brochure and informed consent on breast reduction. It reviews the surgical risks, alternate skin incisions and pedicle versus free nipple graft techniques. It also discusses the optionof volume reduction by liposuction alone, which does not alter the nipple- areolar complex position.It talks about the impact of this surgery on decreasing breast cancer risk. We reviewed the timing of surgery relative to weight fluctuations and I've advised that surgery is best done at a realistic intermediate stable weight. We talked about the outpatient nature of the surgery, drains, postoperative recovery, and time required off work. The following risks were reviewed in the video or in our discussion: Surgical Risks which are greater with open reduction: bleeding with risk of hematoma (<5%); numbness, which may be temporary or permanent; scarring, including abnormal scarring; infection (5-10%);fat necrosis resulting in a breast mass and possible need for revision. I stressed the likelihood of minor problems with delayed wound healing (~30%) and the rare complication of nippleareolar necrosis. She is also aware that there may be some residual pain after the surgery and that there may possibly be some asymmetry. Vertical or Lollipop Incision: Less scarring on breast, but slightly greater risk for delayed healing and desire for scar revision. (She was informed that her insurer might not cover secondary revisions for scarring or asymmetry.) Amaya or [place] Pattern Incision: More scarring on breast, but lower risk for scar revision. (She was informed that her insurer might not cover secondary revisions for scarring or asymmetry.) Pedicle Technique: volume of reduction may be limited by need to provide an adequate blood supply to the nipple. There is a very small risk of nipple loss. Most women (~60%) will be able to breast-feed. Free Nipple Graft: The grafts will initially have no sensation and once fully healed may not respond to temperature and touch as they do now. She has also been informed that they may not look entirely normal and may have patchy hypopigmentation. She will not be able to breast feed with this technique. After fully discussing the options, she has opted to pursue a: Bilateral Breast Reduction Vertical, Pedicle Bilateral Breast Reduction Amaya, Pedicle Xxx Bilateral Breast Reduction Amaya, FNG Anticipated resection: 1100 grams right breast 1200 grams left breast BSA [employer]/[place] Medicaid All other / Schnur (drop BSA guideline here) Assessment: I think she would be an excellent candidate for breast reduction given her symptoms andwe discussed timing of this would be best at a reduced BMI to minimize her surgical risk. At this time her BMI is over 41 and I discussed with her that her chances of having a wound complication would be significantly higher than desired. At a lower BMI her chances of having a wound complication are significantly lower. I approach this conversation in a delicate way and discussed with the patienthave no criticism or judgment and I think it is important to recognize that this can be a sensitivetopic of discussion. She understood this and recognizes that her BMI can have an impact on her care. We discussed giving her some time to attempt to lower her BMI but at that point time if she is unable to do so we may consider proceeding with an operation but I think it requires awareness to the possibility of a wound healing complication. Some women are willing to take this risk given the significant symptoms that they have indoor secondary to the breast size and she will consider this. I will see her back in 3 to 4 months and we can check in. She asked appropriate questions. Additionally Ithink her best technique for breast reduction would be a free nipple graft given her notch to nipple distance and the breast size that she currently has. documented in this encounter Plan of Treatment Not on file documented as of this encounter Visit Diagnoses Diagnosis Macromastia Hypertrophy of breast documented in this encounter Care Teams Crown Buffer Relationship Specialty Start Date End Date Jose Antonio Harden PA [address] [place] [address] PCP - General Family Medicine 11/26/20 documented as of this encounter
--- OUTSIDE RECORDS SUMMARY | 2024-04-08 12:14 | XMS_ITS | Encounter Summary ---
[place] [address] Care Team Providers Care Telecommunications Linesworker Name Role Phone Jose Antonio Harden Primary Care Provider +1- [phone] Encounter Details Date Type Department Care Team (Late st Contact Info) Description 01/24/2021 Telephone [place] [phone] Carissa Vigil Social History Tobacco Use Types [...] on filedocumented in this encounter Care Teams Telecommunications Linesworker Relationship Specialty Start Date End Date Jose Antonio Harden PA [address] [place] [address] PCP - General Family Medicine 11/26/20 documented as of this encounter
--- OUTSIDE RECORDS SUMMARY | 2024-04-08 12:14 | XMS_ITS | Encounter Summary ---
[facility] [place] [address] Care Team Providers Care Air Support Operations Operator Name Role Phone Jose Antonio Harden Primary Care Provider +1- [phone] Reason for Visit * Reason Comments Follow-up Encounter Details Date Type Department Care Team (Late st Contact Info) Description 11/16/2016 9:30 AM EDT Office [place] [address] Dianna Blackman APRN [facility] [place] [address] H/O lymphadenopathy Social History Tobacco Use Types Packs/Day Years Used Date Smoking Tobacco: Former Cigarettes Q uit: 11/02/2012 Alcohol Use Standard Drinks/Week Comments No 0 (1 standard drink = 0.6 oz pur e alcohol) Comments Yes Sex and Gender Information Value Date Recorded Sex Assigned at Not on file Gender Identity Not on file Sexual Orientation Not on file documented as of this encounter Last Filed Vital Signs Vital Sign Reading Time Taken Comments Blood Pressure 123/78 11/16/2016 9:10 AM EDT Pulse - - Temperature - - Respiratory Rate - - Oxygen Saturation - - Inhaled Oxygen Concentration - - Weight 90.7 kg (200 lb) 11/16/2016 9:10 AM EDT Height 160 cm (5' 3) 11/16/2016 9:10 AM EDT Body Mass Index 35.43 11/16/2016 9:10 AM EDT documented in this encounter Progress Notes * YehudaDianna Otilia, KAIAWHINA KURA KAUPAPA MAORI - 11/16/2016 9:30 AM EDT Date of Visit:11/16/2016 Location of Visit: Otolaryngology Clinic, [facility] Patient: Magdalene Smith 1975, [id number] Chief Complaint: Magdalene is a 41-year-old with a history of lymphadenopathy along the left neck since March 2017 here for recheck. She was last seen in ENT on August 28, 2016. Interval History: Magdalene is a 41-year-old with the above history here for recheck. She has a history of lymphadenopathy which appeared to be reactive lymph nodes from my last exam. She had just had a baby and had a history of gestational diabetes. She was nursing then and is still nursing. She does have a history of hypothyroid but states the TSH is now within normal limits. She denies any increasein size of the lymph nodes in fact feels they have decreased. Last night she noted some discomfort in her throat and took an anti-inflammatory. Today she does feel better. No problems eating and drinking. She otherwise feels well. No sinus issues or nasal congestion. Past Medical History: Other than above, Past Medical History: Diagnosis Date ??? Acquired hypothyroidism 09/17/2015 ??? Obesity . Medications: Current Outpatient Prescriptions on File Prior to Visit Medication Sig Dispense Refill ??? multivitamin (THERAGRAN) Tablet Take 1 tablet by mouth daily. ??? naproxen sodium (ANAPROX) 220 mg Tablet Take 220 mg by mouth 2 times daily (with meals). ??? ibuprofen (ADVIL;MOTRIN) 200 mg Tablet Take 200 mg by mouth every 6 hours as needed for Pain. ??? levothyroxine (SYNTHROID) 125 mcg Tablet 0 No current facility-administered medications on file prior to visit. Allergies:Review of patient's allergies indicates no known allergies. ROS: Pertinent positive findings discussed above. No other findings on review of constitutional, visual, cardiovascular, respiratory, gastrointestinal, genitourinary, musculoskeletal, dermatologic, neurological, psychiatric, endocrine, hematologic or immunologic systems. Physical Examination: Blood pressure 123/78, height 160 cm (5' 3), weight 90.7 kg (200 lb). General: Age-appropriate interactive behavior in no acute distress. Face:Symmetric without dysmorphic features. Ears: Auricles symmetric bilaterally without lesions. External auditory canals are clear. On the left, tympanic membrane is clear. Middle ear on the left without middle ear pathology. On the right, tympanic membrane clear. Middle ear on the right without middle ear pathology. Nose: Patent anteriorly; healthy pink mucosa without lesions. Septum without significant deviation. Mouth: Lips and gingiva pink, moist, without lesions. Dentition healthy. Tongue and floor of mouth soft without lesions or masses. Hard palate without lesions. Pharynx: Soft palate without lesions; uvula intact without evidence of submucus cleft palate. Oropharynx symmetric. Neck: A node was palpated on the cervical anterior chain by the clavicle on the right. It is mobileand is .25 cm. There is no clear palpable lymphnodes on the right. Impression: hx of lymphadenopathy Plan: I feel what I'm palpating along the left is a reactive node. This no other significant massesor lymphadenopathy noted. She should watch for any changes or new symptoms and follow-up as needed. Dianna SEXTON [facility] Otolaryngology-Head and Neck Surgery [place], [place] [address] documented in this encounter Plan of Treatment Not on file documented as of this encounter Visit Diagnoses Diagnosis H/O lymphadenopathy Personal history of other specified diseases documented in this encounter Care Teams Air Support Operations Operator Relationship Specialty Start Date End Date Jose Antonio Harden PA [address] [place] [address] PCP - General Family Medicine 08/04/16 03/02/20 documented as of this encounter
--- OUTSIDE RECORDS SUMMARY | 2024-04-08 12:14 | XMS_ITS | Encounter Summary ---
[place] [address] Care Team Providers Care Band Ripsaw Operator Name Role Phone Jose Antonio Harden Primary Care Provider +1- [phone] Encounter Details Date Type Department Care Team (Late st Contact Info) Description 10/26/2016 Telephone [place] [id number] Jaky Rojas Social History Tobacco Use Types Packs/Day Years Used Date Smoking Tobacco: Former Cigarettes Q uit: 11/02/2012 Alcohol Use Standard Drinks/Week Comments No 0 (1 standard drink = 0.6 oz pur e alcohol) Comments Yes Sex and Gender Information Value Date Recorded Sex Assigned at Not on file Gender Identity Not on file Sexual Orientation Not on file documented as of this encounter Miscellaneous Notes * Telephone Encounter - Jaky Rojas - 10/26/2016 7:59 AM EDT Your appointment on 10/26 with Dianna Blackman has to be rescheduled due to scheduling changes. Please call to reschedule. Thank you. >> I called and left a message on primary number for call back. My message indicated that theappointment on 10/26 was cancelled and needs to be rescheduled. Home number was just a busy signal. documented in this encounter Plan of Treatment Not on file documented as of this encounter Visit Diagnoses Not on filedocumented in this encounter Care Teams Band Ripsaw Operator Relationship Specialty Start Date End Date Jose Antonio Harden PA [address] [place] [address] PCP - General Family Medicine 08/04/16 03/02/20 documented as of this encounter
--- OUTSIDE RECORDS SUMMARY | 2024-04-08 12:14 | XMS_ITS | Encounter Summary ---
Author Organization Formerly [facility], [facility] Address [facility] [place] [address] Care Team Providers Care Central Service Technician Name Role Phone Jose Antonio Harden Primary Care Provider [phone] Reason for Visit * Reason Comments Advice Only Encounter Details Date Type Department Care Team (Late st Contact Info) Description 07/26/2021 11:00 AM EST Office [place] [address] Estrada Bains MD [facility] [place] [address] Macromastia Social History Tobacco Use Types Packs/Day [...] - Inhaled Oxygen Concentration - - Weight 99.8 kg (220 lb) 07/26/2021 10:53 AM EST Height 160 cm (5' 3) 07/26/2021 10:53 AM EST Body Mass Index 38.97 07/26/2021 10:53 AM EST documented in this encounter Progress Notes * Estrada Bains MD - 07/26/2021 11:00 AM EST Plastic Surgery Follow Up Note Estrada Bains M.D. PCP: PHU Paredes CC: Symptomatic macromastia HPI: Magdalene Smith is a 45 y.o. female who presents today for a follow up of symptomatic macromastia. Since her last appointment, she has lost 20 lbs through [employer]. The patient feels that scheduling surgery one year from now would work well for her. The patient asked about including apanniculectomy at the same time as her breast reduction. Examination: BMI: Ht 160 cm (5' 3) Wt 99.8 kg (220 lb) BMI 38.97 kg/m?? BSA: Body surface area is 2.11 meters squared. General: On my examination today, [...] surgery is best done at a realistic jail stable weight. We talked about the outpatient [...] revisions for scarring or asymmetry.) Amaya or Ripley Pattern Incision: More scarring on breast, but [...] Vertical, Pedicle Bilateral Breast Reduction Amaya, Pedicle X Bilateral Breast Reduction Amaya, FNG Anticipated resection: 1100 grams right breast 1200 grams left breast Assessment: I think Magdalene Smith would be an excellent candidate for breast reduction given her symptoms and we discussed timing of this would be best at a reduced BMI to minimize her surgical risk. The patient is doing very well on her weight loss. We will wait until she reaches a BMI of 35 and then schedule surgery. If she includes a panniculectomy at the same time as her BBR, the recoverytime would be approximately 6 weeks. Magdalene will make an appointment to reconsult a couple of months before she is ready for surgery. Plan: Follow up: the patient will call when she is ready to schedule surgery IDiane, have performed the documentation for this encounter in the presence of and acting as a scribe for ESTRADA BAINS MD. I performed the services which were documented by the scribe, and I agree with the accuracy of the documentation in this encounter. ESTRADA BAINS MD documented in this encounter Plan of Treatment Not on file documented as of this encounter Visit Diagnoses Diagnosis Macromastia Hypertrophy of breast documented in this encounter Care Teams Central Service Technician Relationship Specialty Start Date End Date Jose Antonio Harden PA [address] [place] [address] PCP - General Family Medicine 11/26/20 documented as of this encounter
--- OUTSIDE RECORDS SUMMARY | 2024-04-08 12:14 | XMS_ITS | Encounter Summary ---
Author Organization [facility] Address [facility] [place] [address] Care Team Providers Care Mammography Technician Name Role Phone Merna Tobias MD Primary Care Provider [phone] Encounter Details Date Type Department Care Team (Latest Contact Info) Description 07/17/2016 - 07/17/2016 11:59 PM EST Hospital Encounter Radiology Library at [place] [place] [address] Demar Hayes MD [facility] [place] [address] Pain Discharge Disposition: Home Social History Tobacco Use Types Packs/Day Years Used Date Smoking Tobacco: Former Cigarettes Q uit: 11/02/2012 Alcohol Use Standard Drinks/Week Comments No 0 (1 standard drink = 0.6 oz pur e alcohol) Comments Yes Sex and Gender Information Value Date Recorded Sex Assigned at Not on file Gender Identity Not on file Sexual Orientation Not on file documented as of this encounter Medications at Time of Discharge Medication Sig Dispensed Refills Start Date End Date levothyroxine (SYNTHROID) 125 mcg Tablet daily. 0 06/24/2015 03/27/2019 metFORMIN (GLUCOPHAGE) 500 mg TabletIndications:gest ational diabetes mellitus 500 mg every morning. Reported on 08/28/2016 Indications: Gestational Diabetes Mellitus 0 08/30/2015 08/28/2016 metFORMIN (GLUCOPHAGE) 850 mg TabletIndications:Gest ational diabetes mellitus in second trimester, unspecified diabetic control Take 1 tablet by mouth nightly. 30 tablet 1 09/17/2015 08/28/2016 documented as of this encounter Plan of Treatment Not on file documented as of this encounter Procedures Procedure Name Priority Date/Time Associated Diagnosis Comments FILM LIBRARY STORAGE ONLY ULTRASOUND STUDY Routine 07/17/2016 12:00 AM EST Pain documented in this encounter Results * Film Library- Storage Only Ultrasound Study (07/17/2016 12:00 AM EST) Narrative [facility] - 08/09/2016 4:28 PM EST This exam is for storage only and is auto-finalizing. Demar Hayes MD IMG FILM LIBRARY O RDERABLES Performing Organization Address City/State/[facility] Co de Phone Number [place], [place] documented in this encounter Visit Diagnoses Diagnosis Pain Generalized pain documented in this encounter Care Teams Mammography Technician Relationship Specialty Start Date End Date Merna Tobias MD [address] [place] [address] PCP - General 06/07/10 08/03/16 documented as of this encounter
--- OUTSIDE RECORDS SUMMARY | 2024-04-08 12:14 | XMS_ITS | Encounter Summary ---
Author Organization [facility] [place] [address] Care Team Providers Care Mail Order Biller Name Role Phone Jose Antonio Harden Primary Care Provider [phone] Reason for Visit * Reason Comments Other swollen lymph nodes x 5 months. Patient reports that she also starting having joint pain and psoriasis flare ups around the same time. Patient states that she feels discomfort under her arms and in her groin area. * Consultation (Routine) - Closed Specialty Diagnoses / Procedures Referred By Irma sharif Referred To Contact Otolaryngology Diagnoses Lymphadenopathy Jose Antonio Harden PA [address] [place] [address] Shani Lund MD [facility] [place] [address] Referral ID Status Reason Start Date Expiration Date V isits Requested Visits Authorized [id number] Closed Consult, Test & [facility] 08/07/2016 08/07/2017 1 1 Encounter Details Date Type Department Care Team (Late st Contact Info) Description 08/28/2016 11:00 AM EST Office Visit [place] [address] Dianna Blackman APRN [facility] [place] [address] Lymphadenopathy Social History Tobacco Use Types Packs/Day Years [...] - Inhaled Oxygen Concentration - - Weight 88 kg (194 lb) 08/28/2016 10:49 AM EST Height 161.3 cm (5' 3.5) 08/28/2016 10:49 AM ES T Body Mass Index 33.83 08/28/2016 10:49 AM EST documented in this encounter Progress Notes * Dianna Blackman, CAFETERIA TABLE ATTENDANT - 08/28/2016 11:00 AM EST Otolaryngology Outpatient Consultation Note Date of Visit: 08/28/2016 Location of Visit: Otolaryngology Clinic, [facility] Patient: Magdalene Smith ([id number] ; 1975 Primary Care Provider: PHU Paredes Referring Provider: Jose Antonio Harden Reason for Visit: Magdalene is a 41 y.o. female with a hx of lymphadenopathy along the left neck since March 2017 seen at the request of Jose Antonio Harden. History of Present Illness: Magdalene presents with c/o an enlarged lymph node palpated along the left cervical anterior aspect last March She did have an ultrasound in 04/2017 and it measured [id number]. There was a repeat ultrasound done on 07/17/2016 which reads 12x.9 x.6 cm. (? Mistake and it was meant to be 1.2 cm). She feels this does fluctuate in size. She has noticed a few enlarged nodes on the right side of her neck. She has a 7 month old and has a hx of gestational diabetes. She is currently nursing. Eating and drinking well. She has a hx of hypothyroid and is having her medication adjusted to reach therapeutic levels. She did have a CBC in April and after talking to the PCP she stated it was wnl. She will send the results. Magdalene did smoke 1 pack/day for 16 years but quit 4 years ago. She is anxious. Her 7 month old isnot sleeping well through the night. She does have a hx of psoriasis and is now having joint pain.She has not been evaluated by a Associate Chief Nurse. No hx of sinus issues or nasal congestion. Past Medical History: Past Medical History Diagnosis Date ??? Acquired hypothyroidism 09/17/2015 ??? Obesity Past Surgical History: Past Surgical History Procedure Laterality Date ??? Tonsillectomy Medications: Current Outpatient Prescriptions on File Prior to Visit Medication Sig Dispense Refill ??? levothyroxine (SYNTHROID) 125 mcg Tablet 0 No current facility-administered medications on file prior to visit. Allergies: Review of patient's allergies indicates no known allergies. Social History: Magdalene Smith lives in [place] [address], . Review of Systems: Pertinent positive findings discussed above. No other findings on review of constitutional, visual, cardiovascular, respiratory, gastrointestinal, genitourinary, musculoskeletal, dermatologic, neurological, psychiatric, endocrine, hematologic or immunologic systems. Physical Examination: Vitals: Height 161.3 cm (5' 3.5), weight 88 kg (194 lb). General: A pleasant 41 y.o. In no acute distress. Face: Full and symmetric facial movement. No dysmorphic facial features. Ears: Auricles symmetric without lesions. External auditory canals clear. Right tympanic membrane clear. right middle ear aerated. Left tympanic membrane clear. left middle ear aerated. Nose: Patent anteriorly with adequate airflow, healthy pink mucosa. Septum is midline without significant deviation. Inferior turbinates wnl Mouth: Lips and gingiva pink, moist, without lesions. Age-appropriate dentition healthy. Tongue andfloor of mouth soft without lesions or masses. Hard palate without lesions. Pharynx: Soft palate without lesions. Uvula is intact without evidence of submucus cleft palate. Oropharynx symmetric. Neck: Soft, supple, without significant lymphadenopathy. There is a palpable node along the left anterior chain that is approx. .5 cm in diameter. It is mobile. There are 2 palpable nodes along the right anterior cervical chain which area .25cm . Thyroid gland without masses or asymmetry. Trachea midline without deviation. Procedure - Flexible Fiberoptic Laryngoscopy: Topical anesthetic applied to the nasal cavity. Patient tolerated the procedure well without complication. Findings: Nasal Cavity: Clear mucus, no masses Nasopharynx: wnl Oropharynx: wnl Larynx: wnl Hypopharynx: wnl Imaging Studies: Reviewed ultrasound results. I did call [facility] to let them know that theultrasound results for 07/17/2016 is read as12cm x.9 x.6. They were going to review this with the radiologist. Impression: 1) Lymphadenopathy 2 Hx of psoriasis with arthritis. Recommendations: At this time I would wait and watch. I do feel she may benefit with an evaluation of her psoriasis and arthritis with probable Rheumatology. She is getting her thyroid medication adjusted. I will review her labs when they are here. She should f/u in 2 months for a recheck with Dianna SEXTON with in clinic or sooner if needed.A CT may be needed. Dianna SEXTON [place], [place] [address] Office documented in this encounter Plan of Treatment Not on file documented as of this encounter Visit Diagnoses Diagnosis Lymphadenopathy Enlargement of lymph nodes documented in this encounter Care Teams Mail Order Biller Relationship Specialty Start Date End Date Jose Antonio Harden PA [address] [place] [address] PCP - General Family Medicine 08/04/16 03/02/20 documented as of this encounter
--- OUTSIDE RECORDS SUMMARY | 2024-04-08 12:15 | XMS_ITS | Encounter Summary ---
Author Organization [facility] Address [address] [place] [id number] Care Team Providers Care Insurance Healthcare Consultant Name Role Phone Unavailable Primary Care Provider Unavailabl e Encounter Details Date Type Department Care Team (Late st Contact Info) Description 08/23/2012 Results Only [facility] Laboratory Services - [facility] ([facility]) [address] [place], [place] [id number] Philly Gonzalez MD [address] [place] [address] [place] [address] Social History Tobacco Use Types Packs/Day Years Used Date Smoking Tobacco: Never Assessed Sex and Gender Information Value Date Recorded Sex Assigned at Not on file Gender Identity Not on file Sexual Orientation Not on file documented as of this encounter Plan of Treatment Not on file documented as of this encounter Procedures Procedure Name Priority Date/Time Associated Diagnosis Comments PAP TEST- RESULT ONLY Routine 08/23/2012 0:00 EST documented in this encounter Results * PAP TEST- RESULT ONLY (08/23/2012 0:00 EST) Pathology Report: CYTOPATHOLOGY REPORT Reports generated via electronic interface contain original data; however they are lacking the format of the original report. Caution should be taken when reading/interpreti ng unformatted reports. Name: ? ANA SMITH ? Accession #: ? [id number] ? : ? 1975 (Age: 37) ??F ?Collect Date: ? 08/23/2012 ? Location: ? [facility] ? Receive Date: ? 08/27/2012 ? Provider: PHILLY GONZALEZ MD Copy to: ? Final Report SPECIMEN ADEQUACY ? Satisfactory for Evaluation - transformation zone component present GENERAL CATEGORIZATION ? Negative for Intraepithelial Lesion or Malignancy ?? Last Menstrual Period: 2007 Hormonal/Contracep tive status: Intrauterine device: mirena Specimen/Source: ??Pap Test, Cervix/Endocervix, ThinPrep Imaging System with manual evaluation Document reviewed and electronically signed by: ? Madyson Ferrell, CT(ASCP) ? Report ??Date: 08/29/2012 10:44 HPV with Pap Test ? Date Ordered: ? 08/29/2012 ? Status: ?? Signed Out ?Date Complete: ? 09/10/2012 ? By: ??System Interface ? Date Reported: ? 09/10/2012 ? Interpretation RESULT: Negative for HPV. No E6 or E7 mRNA is detected from HPV types 16,18,31,33,35, 39,45,51,52,56,58, 59,66, and 68 by risk and insurance consultant mediated amplification. Comments Document reviewed and electronically signed by: ? System Interface ? Report date: 09/10/2012 By the signature above, the attending physician certifies that he/she has personally conducted a gross and/or microscopic examination of the described specimens and rendered or confirmed the above diagnosis. End of Report [facility] 08/23/2012 08/27/2012 Philly Gonzalez MD PATHOLOGY ORDERABLES Performing Organization Address City/State/[facility] Co de Phone Number [address] [address] documented in this encounter Visit Diagnoses Not on filedocumented in this encounter
--- OUTSIDE RECORDS SUMMARY | 2024-04-08 12:15 | XMS_ITS | Encounter Summary ---
Author Organization [facility] Address [address] [place] [address] Care Team Providers Care Pneumatic Hoist Operator Name Role Phone Unknown, Provider Primary Care Provider [phone] Encounter Details Date Type Department Care Team (Late st Contact Info) Description 01/18/2016 Results Only [facility] [phone] Rahel Collier MD [address] [place] [address] Social History Tobacco Use Types Packs/Day Years Used Date Smoking Tobacco: Never Assessed Sex and Gender Information Value Date Recorded Sex Assigned at Not on file Gender Identity Not on file Sexual Orientation Not on file documented as of this encounter Plan of Treatment Not on file documented as of this encounter Procedures Procedure Name Priority Date/Time Associated Diagnosis Comments SCREEN TEST Routine 01/18/2016 16: 55 EDT documented in this encounter Results * SCREEN TEST (01/18/2016 16:55 EDT) Screen Test NEGATIVE [facility] 01/18/2016 16:5 5 EDT Rahel Collier MD BLOOD BANK TESTS [facility] documented in this encounter Visit Diagnoses Not on filedocumented in this encounter Care Teams Pneumatic Hoist Operator Relationship Specialty Start Date End Date Unknown, ProviderMD PCP - General 09/09/12 documented as of this encounter
--- OUTSIDE RECORDS SUMMARY | 2024-04-08 12:15 | XMS_ITS | Encounter Summary ---
Author Organization [facility] Address [facility] [place] [address] Care Team Providers Care Chiseler Head Name Role Phone Merna Tobias MD Primary Care Provider [phone] Encounter Details Date Type Department Care Team (Latest Contact Info) Description 09/17/2015 2:01 PM EST - 09/17/2015 11:59 PM [facility] Hospital [place] [address] Gayatri Natarajan MD [facility] [place] [address] Diet controlled gestational diabetes mellitus in puerperium Discharge Disposition: Home Social History Tobacco Use Types Packs/Day Years Used Date Smoking Tobacco: Former Cigarettes Q uit: 11/02/2012 Comments Yes Sex and Gender Information Value [...] Procedure Name Priority Date/Time Associated Diagnosis Comments US OB DETAILED MORPHOLOGY Routine 09/17/2015 3:24 PM EST Diet controlled gestational diabetes mellitus in puerperium documented in this encounter Results * US OB Detailed Morphology (09/17/2015 3:24 PM EST) Anatomical Region Laterality Modality Pelvis, Abdomen Ultrasound 09/17/2015 2:44 PM EST Impressions 09/17/2015 4:49 PM EST Impression 2nd Trimester - Detailed Morphology - Summary Single intrauterine with a gestational age of 22w 1d based on Clinical TERRENCE. Composite age based on the current ultrasound alone is 23w 5d. Current growth parameters are consistent with prior dating indicating normal growth. Amniotic fluid volume is appropriate for gestational age. Detailed anatomic evaluation was performed. Echogenic intracardiac focus visualized. ??No other structural abnormalities are noted. Visualization limited due to maternal body habitus. I ??viewed the images and agree with the above interpretation. ?Gayatri Natarajan MD Electronically Signed Final Report ?? 09/17/2015 04:48 pm Narrative 09/17/2015 4:49 PM EST OBSTETRICS REPORT ?(Signed Final 09/17/2015 04:48 pm) Patient Info ID #: ? [id number] ?: ??[birth year] (40 yrs) Name: ? MAGDALENE HO ?Visit Date: 09/17/2015 02:44 pm ? BIPIN Performed By Performed By: ? Judi Christina RDMS Attending: ?Gayatri Natarajan MD Referred By: ?ANGELA AVERY CNM Service(s) Provided ??[facility] - Detailed Morphology - Genetics - [id number] Indications ??GROWTH, GDM ? POOR CONTROL; E - ??Coordinates with gestational age or more ??than one week OB History Height: ? 5'3 ?Weight: ?? 230 ?BMI: ??40.74 Evaluation Num Of Fetuses: ? 1 Heart ? 144 Rate(bpm): Cardiac Activity: ?? Observed, normal rhythm Presentation: ? Breech Placenta: ? Posterior right lateral P. Cord Insertion: ??Within Normal Limits Amniotic Fluid HIRO FV: ?Appropriate for gestational age -------- Biometry -------- BPD: ?57.3 ??mm ? G.Age: ?? 23w 4d OFD: ?73.4 ??mm HC: ?208.1 ??mm ? G.Age: ?? 22w 6d AC: ?187.8 ??mm ? G.Age: ?? 23w 4d FL: ? 45.4 ??mm ? G.Age: ?? 25w 0d HUM: ?43.1 ??mm ? G.Age: ?? 25w 5d CER: ?22.9 ??mm ? G.Age: ?? 21w 3d NB: ?5.9 ??mm LV: ?4.0 ??mm CM: ?5.6 ??mm CI: ?78.1 ??% ? 70 - 86 FL/HC: ? 21.8 ??% ? 18.4 - 20.2 HC/AC: ? 1.11 ?1.06 - 1.25 FL/BPD: ?79.2 ??% ? 71 - 87 FL/AC: ? 24.2 ??% ? 20 - 24 Est. FW: ? 654 ?? gm ? 1 lb 7 oz Gestational Age Clinical TERRENCE: ??22w 1d ?TERRENCE: ?? 01/20/16 U/S Today: ? 23w 5d ?TERRENCE: ?? 01/09/16 Best: ?22w 1d ?? Det. By: ??Clinical TERRENCE ? TERRENCE: ?? 01/20/16 Targeted Anatomy Central Nervous System Calvarium: ?Within Normal Limits Intracranial: ? Within Normal Limits Cavum: ?Visualized Lat. Ventricles: ?Within Normal Limits Cerebellum: ? Within Normal Limits Choroid Plexus: ? Within Normal Limits Cisterna Magna: ? Within Normal Limits Spine Cervical: ? Visualized Thoracic: ? Visualized Lumbar: ? Visualized Sacral: ? Visualized Head/Neck Face: ? Within Normal Limits Nuchal Fold: ?Not evaluated at this Eyes: ? Visualized Profile: ?Visualized Thorax Four Chamber: ? Echogenic intracardi Cardiac Motion: ? Normal Rhythm R Outflow Tract: ?Visualized L Outflow Tract: ?Visualized Cardiac Conover: ? Visualized 3 Vessel View: ?Visualized Diaphragm: ?Visualized Abdomen Ventral Wall: ? Visualized Stomach: ?Visualized Lt Kidney: ?Visualized Rt Kidney: ?Visualized Bladder: ?Visualized Extremities Lt Humerus: ? Visualized Rt Humerus: ? Visualized Lt Forearm: ? Visualized Rt Forearm: ? Visualized Lt Hand: ?Visualized Rt Hand: ?Visualized Lt Femur: ? Visualized Rt Femur: ? Visualized Lt Lower Leg: ? Visualized Rt Lower Leg: ? Visualized Lt Foot: ?Visualized Rt Foot: ?Visualized Other Umbilical Cord: ? 3 vessel cord Cord Insertion: ? WIthin Normal Limits Comment: ? Nasal Bone: Cervix Uterus Adnexa Left Ovary Not visualized Right Ovary Not visualized Procedure Note Gayarti Natarajan MD - 09/17/2015 OBSTETRICS REPORT (Signed Final 09/17/2015 04:48 pm) Patient Info ID #: [id number] : [birth year] (40 yrs) Name: MAGDALENE HO Visit Date: 09/17/2015 02:44 pm SMITH Performed By Performed By: Judi Christina RDMS Attending: Gayatri Natarajan MD Referred By: ANGELA AVERY [facility] Service(s) Provided [facility] - Detailed Morphology - Genetics - [id number] Indications GROWTH, GDM ? POOR CONTROL; E - Coordinates with gestational age or more than one week OB History Height: 5'3 Weight: 230 BMI: 40.74 Evaluation Num Of Fetuses: 1 Heart 144 Rate(bpm): Cardiac Activity: Observed, normal rhythm Presentation: Breech Placenta: Posterior right lateral P. Cord Insertion: Within Normal Limits Amniotic Fluid HIRO FV: Appropriate for gestational age -------- Biometry -------- BPD: 57.3 mm G.Age: 23w 4d OFD: 73.4 mm HC: 208.1 mm G.Age: 22w 6d AC: 187.8 mm G.Age: 23w 4d FL: 45.4 mm G.Age: 25w 0d HUM: 43.1 mm G.Age: 25w 5d CER: 22.9 mm G.Age: 21w 3d NB: 5.9 mm LV: 4.0 mm CM: 5.6 mm CI: 78.1 % 70 - 86 FL/HC: 21.8 % 18.4 - 20.2 HC/AC: 1.11 1.06 - 1.25 FL/BPD: 79.2 % 71 - 87 FL/AC: 24.2 % 20 - 24 Est. FW: 654 gm 1 lb 7 oz Gestational Age Clinical TERRENCE: 22w 1d TERRENCE: 01/20/16 U/S Today: 23w 5d TERRENCE: 01/09/16 Best: 22w 1d Det. By: Clinical TERRENCE TERRENCE: 01/20/16 Targeted Anatomy Central Nervous System Calvarium: Within Normal Limits Intracranial: Within Normal Limits Cavum: Visualized Lat. Ventricles: Within Normal Limits Cerebellum: Within Normal Limits Choroid Plexus: Within Normal Limits Cisterna Magna: Within Normal Limits Spine Cervical: Visualized Thoracic: Visualized Lumbar: Visualized Sacral: Visualized Head/Neck Face: Within Normal Limits Nuchal Fold: Not evaluated at this Eyes: Visualized Profile: Visualized Thorax Four Chamber: Echogenic intracardi Cardiac Motion: Normal Rhythm R Outflow Tract: Visualized L Outflow Tract: Visualized Cardiac Conover: Visualized 3 Vessel View: Visualized Diaphragm: Visualized Abdomen Ventral Wall: Visualized Stomach: Visualized Lt Kidney: Visualized Rt Kidney: Visualized Bladder: Visualized Extremities Lt Humerus: Visualized Rt Humerus: Visualized Lt Forearm: Visualized Rt Forearm: Visualized Lt Hand: Visualized Rt Hand: Visualized Lt Femur: Visualized Rt Femur: Visualized Lt Lower Leg: Visualized Rt Lower Leg: Visualized Lt Foot: Visualized Rt Foot: Visualized Other Umbilical Cord: 3 vessel cord Cord Insertion: WIthin Normal Limits Comment: Nasal Bone: Cervix Uterus Adnexa Left Ovary Not visualized Right Ovary Not visualized IMPRESSION Impression 2nd Trimester - Detailed Morphology - Summary Single intrauterine with a gestational age of 22w 1d based on Clinical TERRENCE. Composite age based on the current ultrasound alone is 23w 5d. Current growth parameters are consistent with prior dating indicating normal growth. Amniotic fluid volume is appropriate for gestational age. Detailed anatomic evaluation was performed. Echogenic intracardiac focus visualized. No other structural abnormalities are noted. Visualization limited due to maternal body habitus. I viewed the images and agree with the above interpretation. Gayatri Natarajan MD Electronically Signed Final Report 09/17/2015 04:48 pm Gayatri Natarajan MD IMG US OB ORDERABLES documented in this encounter Visit Diagnoses Diagnosis Diet controlled gestational diabetes mellitus in puerperium Abnormal maternal glucose tolerance, condition or complication documented in this encounter Care Teams Chiseler Head Relationship Specialty Start Date End Date Merna Tobias MD [address] [place] [address] PCP - General 06/07/10 08/03/16 documented as of this encounter
--- OUTSIDE RECORDS SUMMARY | 2024-04-08 12:15 | XMS_ITS | Referral Summary ---
Author Organization [facility] Address [address] [place] [address] Care Team Providers Care Brokerage Office Manager Name Role Phone Unknown, Provider Primary Care Provider Social History Tobacco Use Types Packs/Day Years Used Date Smoking Tobacco: Never Assessed Sex and Gender Information Value Date Recorded Sex Assigned at Not on file Gender Identity Not on file Sexual Orientation Not on file Plan of Treatment Not on file Care Teams Brokerage Office Manager Relationship Specialty Start Date End Date Unknown, Provider, PCP - General 09/09/12
--- OUTSIDE RECORDS SUMMARY | 2024-04-08 12:15 | XMS_ITS | Encounter Summary ---
Author Organization [facility] Address [address] [place] [address] Care Team Providers Care Churn Driller Name Role Phone Unknown, Provider Primary Care Provider [phone] Encounter Details Date Type Department Care Team (Late st Contact Info) Description 11/23/2020 Lab Requisition [facility] Pathology & Laboratory Medicine - [facility] [address] [place] [address] Outr Resulting Lab, Provider Social History Tobacco Use Types Packs/Day Years Used Date Smoking Tobacco: Never Assessed Sex and Gender Information Value Date Recorded Sex Assigned at Not on file Gender Identity Not on file Sexual Orientation Not on file documented as of this encounter Plan of Treatment Not on file documented as of this encounter Procedures Procedure Name Priority Date/Time Associated Diagnosis Comments T3, TOTAL Routine 11/22/2020 11:30 EDT documented in this encounter Results * T3, TOTAL (11/22/2020 11:30 EDT) T3, Total 141 97 - 169 ng/dL 11/23/2020 17:30 EDT [facility] Blood VENOUS BLOOD / Unknown 11/22/2020 11:30 EDT 11/23/2020 16:42 EDT Provider Outr Resulting Lab CHEMISTRY & BLOOD GAS ORDERABLES [facility] [address] [place] [address] documented in this encounter Visit Diagnoses Not on filedocumented in this encounter Care Teams Churn Driller Relationship Specialty Start Date End Date Unknown, Provider, PCP - General 09/09/12 documented as of this encounter
--- OUTSIDE RECORDS SUMMARY | 2024-04-08 12:15 | XMS_ITS | Encounter Summary ---
Author Organization [facility] Address [facility] [place] [address] Care Team Providers Care Machine Sweeper Brush Maker Name Role Phone Merna Tobias MD Primary Care Provider [phone] Encounter Details Date Type Department Care Team (Latest Contact Info) Description 05/10/2016 - 05/10/2016 11:59 PM EDT Hospital Encounter Radiology Library at [facility] [place] [address] Demar Hayes MD [facility] [place] [address] Pain Discharge Disposition: Home Social History Tobacco [...] FILM LIBRARY STORAGE ONLY ULTRASOUND STUDY Routine 05/10/2016 12:00 AM EDT Pain documented in this encounter Results * Film Library- Storage Only Ultrasound Study (05/10/2016 12:00 AM EDT) Narrative [facility] - 08/09/2016 4:29 PM EST This exam is for storage only and is auto-finalizing. Demar Hayes MD IMG FILM LIBRARY O RDERABLES Performing Organization Address City/State/[facility] Co de Phone Number [place], [place] documented in this encounter Visit Diagnoses Diagnosis Pain Generalized pain documented in this encounter Care Teams Machine Sweeper Brush Maker Relationship Specialty Start Date End Date Merna Tobias MD [address] [place] [address] PCP - General 06/07/10 08/03/16 documented as of this encounter
--- OUTSIDE RECORDS SUMMARY | 2024-04-08 12:15 | XMS_ITS | Encounter Summary ---
Author Organization [facility] Address [facility] [place] [address] Care Team Providers Care Automotive Sales Professional Name Role Phone Merna Tobias MD Primary Care Provider [phone] Encounter Details Date Type Department Care Team (Late st Contact Info) Description 09/10/2015 Orders Only Obstetrics [place] [address] Gayatri Natarajan MD [facility] DR OBSTETRICS [place] [address] Diet controlled gestational diabetes mellitus in puerperium Social History Tobacco Use Types Packs/Day Years Used Date Smoking Tobacco: Never Assessed Sex and Gender Information Value Date Recorded Sex Assigned at Not on file Gender Identity Not on file Sexual Orientation Not on file documented as of this encounter Plan of Treatment Not on file documented as of this encounter Results * US OB Detailed [...] 04:48 pm) Patient Info ID #: ? [id number] ?: ??[birth year] (40 yrs) Name: ? MAGDALENE HO ?Visit Date: 09/17/2015 02:44 pm ? BIPIN Performed By Performed By: ? Judi Christina RDMS Attending: ?Delgado MCNALLY, Gayatri De La Cruz Referred By: ?ANGELA AVERY [facility] Service(s) Provided ??[facility] - Detailed Morphology - Genetics - [id number] Indications ??GROWTH, GDM ? POOR CONTROL; E [...] Tract: ?Visualized L Outflow Tract: ?Visualized Cardiac [place]: ? Visualized 3 Vessel View: ?Visualized Diaphragm: [...] visualized Right Ovary Not visualized Procedure Note Gayatri Natarajan MD - 09/17/2015 OBSTETRICS REPORT (Signed Final 09/17/2015 04:48 pm) Patient Info ID #: [id number] : [birth year] (40 yrs) Name: MAGDALENE HO Visit Date: 09/17/2015 02:44 pm SMITH Performed By Performed By: Judi Christina RDMS Attending: Gayatri Natarajan MD Referred By: ANGELA AVERY [facility] Service(s) Provided [facility] - Detailed Morphology - Genetics - [id number] Indications GROWTH, GDM ? POOR CONTROL; E [...] 1 lb 7 oz Gestational Age Clinical TERERNCE: 22w 1d TERRENCE: 01/20/16 U/S Today: 23w [...] Tract: Visualized L Outflow Tract: Visualized Cardiac [place]: Visualized 3 Vessel View: Visualized Diaphragm: Visualized [...] Abnormal maternal glucose tolerance, condition or complication Diet controlled gestational diabetes mellitus in puerperium Abnormal maternal glucose tolerance, condition or complication documented in this encounter Care Teams Automotive Sales Professional Relationship Specialty Start Date End Date Merna Tobias MD [address] [place] [address] PCP - General 06/07/10 08/03/16 documented as of this encounter
--- OUTSIDE RECORDS SUMMARY | 2024-04-08 12:15 | XMS_ITS | Encounter Summary ---
Author Organization [facility] Address [address] [place] [address] Care Team Providers Care Home Appliance Installer Name Role Phone Unknown, Provider Primary Care Provider [phone] Encounter Details Date Type Department Care Team (Late st Contact Info) Description 02/08/2022 Lab Requisition [facility] Pathology & Laboratory Medicine - [facility] [address] [place] [address] Outr Resulting Lab, Provider Social History Tobacco [...] Date/Time Associated Diagnosis Comments T3, TOTAL Routine 02/07/2022 11:45 EDT documented in this encounter Results * T3, TOTAL (02/07/2022 11:45 EDT) T3, Total 110 97 - 169 ng/dL 02/08/2022 17:29 EDT [facility] Blood VENOUS BLOOD / Unknown 02/07/2022 11:45 EDT 02/08/2022 16:27 EDT Provider Outr Resulting Lab CHEMISTRY & BLOOD GAS ORDERABLES [facility] [address] [place] [address] documented in this encounter Visit Diagnoses Not on filedocumented in this encounter Care Teams Home Appliance Installer Relationship Specialty Start Date End Date Unknown, Provider, PCP - General 09/09/12 documented as of this encounter
--- OUTSIDE RECORDS SUMMARY | 2024-04-08 12:15 | XMS_ITS | Encounter Summary ---
Author Organization [facility] Address [address] [place] [address] Care Team Providers Care Tank Builder Helper Name Role Phone Unknown, Provider Primary Care Provider [phone] Encounter Details Date Type Department Care Team (Late st Contact Info) Description 10/04/2022 Lab Requisition [facility] Pathology & Laboratory Medicine - [address] [address] Outr Resulting Lab, Provider Social History Tobacco [...] Procedure Name Priority Date/Time Associated Diagnosis Comments PROLACTIN Routine 10/03/2022 14:40 EDT T3, TOTAL Routine 10/03/2022 14:40 EDT documented in this encounter Results * T3, TOTAL (10/03/2022 14:40 EDT) T3, Total 125 97 - 169 ng/dL 10/04/2022 18:23 EDT [facility] Blood VENOUS BLOOD / Unknown 10/03/2022 14:40 EDT 10/04/2022 17:33 EDT Provider Outr Resulting Lab CHEMISTRY & BLOOD GAS ORDERABLES [facility] [address] [place] [address] * PROLACTIN (10/03/2022 14:40 EDT) Prolactin 13.3 See Note ng/mL 10/04/2022 19:43 EDT [facility] Comment: NOTE: Female Reference Ranges: PHYSIOLOGICAL STATUS ?REFERENCE RANGE ? Postmenopausal ?1.8 - 20.3 ng/mL ?9.7 - 208.5 ng/mL Non- ?2.8 - 29.2 ng/mL Blood VENOUS BLOOD / Unknown 10/03/2022 14:40 EDT 10/04/2022 17:33 EDT Provider Outr Resulting Lab CHEMISTRY & BLOOD GAS ORDERABLES [facility] [address] [place] [address] documented in this encounter Visit Diagnoses Not on filedocumented in this encounter Care Teams Tank Builder Helper Relationship Specialty Start Date End Date Unknown, Provider, PCP - General 09/09/12 documented as of this encounter
--- OUTSIDE RECORDS SUMMARY | 2024-04-08 12:15 | XMS_ITS | Encounter Summary ---
Author Organization [facility] Address [address] [place] [address] Care Team Providers Care Mill Operator Name Role Phone Unknown, Provider Primary Care Provider Encounter Details Date Type Department Care Team (Late st Contact Info) Description 02/28/2016 Results Only [facility] [phone] Narcisa Avery [address] [place], [place] [address] Social History Tobacco Use Types Packs/Day Years [...] Diagnosis Comments PAP TEST- RESULT ONLY Routine 02/28/2016 0:00 EDT documented in this encounter Results * PAP TEST- RESULT ONLY (02/28/2016 0:00 EDT) Pathology Report: CYTOPATHOLOGY REPORT Reports generated via electronic interface contain original data; however they are lacking the format of the original report. Caution should be taken when reading/interpreti ng unformatted reports. Name: ? LATESHA SMITH ? Accession #: ? [id number] ? : ? 1975 (Age: 40) ??F ?Collect Date: ? 02/28/2016 ? Location: ? [facility] ? Receive Date: ? 02/29/2016 ? Provider: NARCISA AVERY [facility] Copy to: MARY KATE HICKMAN MD ? Final Report SPECIMEN ADEQUACY ? Satisfactory for Evaluation - transformation zone component present GENERAL CATEGORIZATION ? Negative for Intraepithelial Lesion or Malignancy ?? Menstrual/Pregnanc y Status: ??Post Hormonal/Contracep tive status: None Specimen/Source: ??Pap Test, Cervix/Endocervix, ThinPrep Imaging System with manual evaluation Document reviewed and electronically signed by: ? José Manuel Peterson, [place](ASCP) ? Report ??Date: 03/02/2016 15:55 HPV with Pap Test ? Date Ordered: ? 03/02/2016 ? Status: ?? Signed Out ?Date Complete: ? 03/04/2016 ? By: ??System Interface ? Date Reported: ? 03/04/2016 ? Interpretation RESULT: Negative for HPV. No E6 or E7 mRNA is detected from HPV types 16,18,31,33,35, 39,45,51,52,56,58, 59,66, and 68 by electric sign assembler mediated amplification. Comments Document reviewed and electronically signed by: ? System Interface ? Report date: 03/04/2016 By the signature above, the attending physician certifies that he/she has personally conducted a gross and/or microscopic examination of the described specimens and rendered or confirmed the above diagnosis. End of Report [facility] 02/28/2016 02/29/2016 Narcisa Avery [facility] PATHOLOGY ORDERABLES [facility] [address] [place] [address] documented in this encounter Visit Diagnoses Not on filedocumented in this encounter Care Teams Mill Operator Relationship Specialty Start Date End Date Unknown, Provider, PCP - General 09/09/12 documented as of this encounter
--- OUTSIDE RECORDS SUMMARY | 2024-04-08 12:15 | XMS_ITS | Encounter Summary ---
Author Organization [facility] Address [address] [place] [address] Care Team Providers Care Therapeutic Strategy Lead Name Role Phone Unavailable Primary Care Provider Unavailabl e Encounter Details Date Type Department Care Team (Late st Contact Info) Description 05/05/2008 Before [facility] Converted Visit (Maple) [facility] - Maple conversion [address] [place] [address] Narcisa Santamaria CNM [address] [place], [place] [address] Social History Tobacco Use Types Packs/Day Years Used Date Smoking Tobacco: Never Assessed Sex and Gender Information Value Date Recorded Sex Assigned at Not on file Gender Identity Not on file Sexual Orientation Not on file documented as of this encounter Plan of Treatment Not on file documented as of this encounter Procedures Procedure Name Priority Date/Time Associated Diagnosis Comments CYTOPATHOLOGY Routine 05/05/2008 0:00 EDT documented in this encounter Results * CYTOPATHOLOGY (05/05/2008 0:00 EDT) Pathology Report: CYTOPATHOLOGY REPORT ? Reports generated via electronic interface contain original data; ? however they are lacking the format of the original report. ? Caution should be taken when reading/interpreti ng unformatted reports. ? Name: ? LATESHA SMITH ? Accession #: ? [id number] ? : ? 1975 (Age: 32) ??F ?Collect Date: ? 05/05/2008 ? Location: ? [facility] ? Receive Date: ? 05/06/2008 ? Provider: ?ANEA LELONG CNM ? Copy to: ? Specimen/Source: ?Pap Test, Cervix/Endocervix, ThinPrep Imaging System ? with manual evaluation ? Last Menstrual Period: ? 8/20/08 ? Menstrual/Pregnanc y Status: ? Previous Gynecologic Pathology: ? Yes: Hx of abnormal pap, was to have F/U 7/08 did not ? Other: ? HPVA - HPV testing requested if ASC-US on the current ThinPrep Pap test. ? SPECIMEN ADEQUACY ? Satisfactory for Evaluation ? - transformation zone component present ? GENERAL CATEGORIZATION ? Negative for Intraepithelial Lesion or Malignancy ? Document reviewed and electronically signed by: ? Rach Gume, CT(ASCP) ? Report Date: ??05/11/2008 07:45 ? End of Report ? [facility] 05/05/2008 05/06/2008 Narcisa Santamaria CNM PATHOLOGY ORDERABLES [facility] [address] [place] [address] documented in this encounter Visit Diagnoses Not on filedocumented in this encounter
--- OUTSIDE RECORDS SUMMARY | 2024-04-08 12:15 | XMS_ITS | Encounter Summary ---
Author Organization [facility] Address [address] [place] [address] Care Team Providers Care Lcac Operator Name Role Phone Unknown, Provider Primary Care Provider Encounter Details Date Type Department Care Team (Late st Contact Info) Description 06/01/[address] [facility] Pathology & Laboratory Medicine - [facility] [address] [place] [address] Ted Quintero MD [address] [place] [address] [id number] Disorder of external ear, unspecified, unspecified ear Social History Tobacco Use Types Packs/Day Years Used Date Smoking Tobacco: Never Assessed Sex and Gender Information Value Date Recorded Sex Assigned at Not on file Gender Identity Not on file Sexual Orientation Not on file documented as of this encounter Plan of Treatment Not on file documented as of this encounter Procedures Procedure Name Priority Date/Time Associated Diagnosis Comments SURGICAL PATHOLOGY Today 06/01/2022 9: 30 EST Disorder of external ear, unspecified, unspecified ear documented in this encounter Results * SURGICAL PATHOLOGY (06/01/2022 9:30 EST) Note to Patient The following pathology results have been interpreted by your pathologist and may be available to you before your health provider has had the opportunity to review them. Please allow time for your provider to receive these results and explore management options, if applicable. 06/02/2022 14:13 EST [facility] Final Diagnosis A. SKIN OF EXTERNAL EAR CANAL, LEFT, BIOPSY: - Benign squamous papilloma. See comment. 06/02/2022 14:13 [facility] Diagnosis Comment Although the lesion has some architectural features of a wart, there are no definitive viral cytopathic changes. 06/02/2022 14:13 [facility] Attestation By the signature below, the attending physician certifies that they have 1) personally conducted a gross and/or microscopic examination of the described specimen(s), and/or personally interpreted the results of laboratory testing of the described specimen(s), and 2) personally rendered or confirmed the above diagnosis. 06/02/2022 14:13 [facility] at 1413 Microscopic Description Sections consist of a shave biopsy of papule. There is hyperkeratosis. The epidermis is papillomatous with broad papillomatous projections. The keratinocytes show mild reactive changes and hypergranulosis. Within the dermis, there are dilated reactive vessels. 06/02/2022 14:13 [facility] Clinical History L external ear canal, H/O warts in L ear 15 years ago 06/02/2022 14:13 [facility] Gross Description A. Received in formalin labelled with proper patient identification (initials G, A) and L external ear canal is a shave biopsy of rubin scaly and crusty papule (0.1 x 0.1 x less than 0.1 cm). The margins are inked blue and the specimen submitted intact in A1. CHEYENNE ABBOTT 06/02/2022 8:00 06/02/2022 14:13 [facility] Performing Lab [facility] 06/02/2022 14:13 [facility] Scanned Images 06/02/2022 14:13 [facility] Tissue TISSUE SPECIMEN FROM SKIN / Unknown 06/01/2022 9:30 EST 06/01/2022 23:57 EST Ted Quintero MD PATHOLOGY ORDERABLES [facility] [address] [place] [address] documented in this encounter Visit Diagnoses Diagnosis Disorder of external ear, unspecified, unspecified ear documented in this encounter Care Teams Lcac Operator Relationship Specialty Start Date End Date Unknown, Provider, PCP - General 09/09/12 documented as of this encounter
--- OUTSIDE RECORDS SUMMARY | 2024-04-08 12:15 | XMS_ITS | Encounter Summary ---
Author Organization [facility] Address [address] [place] [address] Care Team Providers Care Division Order Analyst Name Role Phone Unknown, Provider Primary Care Provider Encounter Details Date Type Department Care Team (Late st Contact Info) Description 01/13/2021 Lab Requisition [facility] Pathology & Laboratory Medicine - [facility] [address] [place] [address] Jose Antonio Harden PA-C [address] [place] [address] Encounter for other general examination Social History Tobacco Use Types Packs/Day Years Used Date Smoking Tobacco: Never Assessed Sex and Gender Information Value Date Recorded Sex Assigned at Not on file Gender Identity Not on file Sexual Orientation Not on file documented as of this encounter Plan of Treatment Not on file documented as of this encounter Procedures Procedure Name Priority Date/Time Associated Diagnosis Comments PAP TEST Today 01/10/2021 8:30 EDT Encounter for other general examination HPV DNA DETECTION WITH GENOTYPING, PCR Today 01/10/2021 8:30 EDT Encounter for other general examination documented in this encounter Results * HUMAN PAPILLOMAVIRUS (HPV) DETECTION-HIGH RISK TYPES (01/10/2021 8:30 EDT) HPV other High Risk types, PCR Negative Negative 01/25/2021 7:[address] [facility] Papanicolaou smear specimen (specimen) CERVIX UTERI STRUCTURE / Unknown 01/10/2021 8:30 EDT 01/21/2021 9:29 EDT Jose Antonio Harden PA-C MICROBIOLOGY - G ENERAL ORDERABLES [facility] [address] [place] [address] * PAP TEST (01/10/2021 8:30 EDT) Specimens A. Cervix and/or Endocervix , ThinPrep Imaging System with Manual Evaluation 01/25/2021 7:[address] [facility] Specimen Adequacy Satisfactory for Evaluation - transformation zone component present 01/25/2021 7:[address] [facility] General Categorization Negative for intraepithelial lesion or malignancy 01/25/2021 7:[address] [facility] Attestation . 01/25/2021 7:[address] [facility] at 0718 Clinical History See below 01/26/20 7:[address] [facility] HPV The result for the Human Papillomavirus (HPV) Detection-High Risk Types is Negative. No E6 or E7 mRNA is detected from HPV types 16,18,31,33,35,39 ,45,51,52,56,58,5 9,66, and 68 by rn orthopaedics mediated amplification.Courtney ting was performed on specimen [id number] and was resulted on 01/25/2021 0704 EDT by LAX[facility], LAB INSTRUMENT RESULTS IN 01/25/2021 7:[address] [facility] Performing Lab [facility] 01/25/2021 7:[address] [facility] Scanned Images 01/25/2021 7:[address] [facility] Papanicolaou smear specimen (specimen) CERVIX UTERI STRUCTURE / Unknown 01/10/2021 8:30 EDT 01/13/2021 10:50 EDT Jose Antonio Harden PA-C PATHOLOGY ORDERA BLES [facility] [address] [place] [address] documented in this encounter Visit Diagnoses Diagnosis Encounter for other general examination documented in this encounter Care Teams Division Order Analyst Relationship Specialty Start Date End Date Unknown, Provider, PCP - General 09/09/12 documented as of this encounter
--- OUTSIDE RECORDS SUMMARY | 2024-04-08 12:15 | XMS_ITS | Encounter Summary ---
Author Organization [facility] Address [facility] [place] [address] Care Team Providers Care Manager Managing Name Role Phone Merna Tobias MD Primary Care Provider [phone] Reason for Visit * Reason Comments Ultrasound Ultrasound Finding * Consultation (Routine) - Closed Specialty Diagnoses / Procedures Referred By Contac t Referred To Contact Maternal and Medicine / Obstetrics and Gynecology Diagnoses GDM ? good control Procedures GDM ? good control Narcisa Santamaria, KEITH [address] [place] [address] [facility] [address] [place] [address] Referral ID Status Reason Start Date Expiration Date Visits Re quested Visits Authorized [id number] Closed 09/14/2015 09/13/2016 1 1 Encounter Details Date Type Department Care Team (Latest Contact Info) Description 09/17/2015 3:00 PM EST Procedure visit [place]stetrics [place] [address] Gayatri Natarajan MD [facility] [address] OBSTET[place] [address] Gestational diabetes mellitus in second trimester, unspecified diabetic control; Acquired hypothyroidism; Obesity, unspecified obesity severity, unspecified obesity type Social History Tobacco Use Types Packs/Day Years [...] Sign Reading Time Taken Comments Blood Pressure 115/59 09/17/2015 2:26 PM EST Pulse - - Temperature - - Respiratory Rate - - Oxygen Saturation - - Inhaled Oxygen Concentration - - Weight 104.6 kg (230 lb 9.6 oz) 09/17/2015 2:26 PM EST Height 161.3 cm (5' 3.5) 09/17/2015 2:26 PM EST Body Mass Index 40.21 09/17/2015 2:26 PM EST documented in this encounter Progress Notes * Gayatri Natarajan MD - 09/17/2015 4:07 PM EST Maternal Medicine Consult Note Magdalene Smith is a 40 y.o. with an TERRENCE of 01/20/16 who is at 22w3d gestation. She is seen inconsultation at the request of Narcisa Santamaria CNM for evaluation of growth and diabetes. She wasseen today for maternal- medicine consultation and ultrasound evaluation. The patient reports that this has been complicated by gestational diabetes. She has seen a grated cheese maker and is working to improve her diet. She has been losing weight. Home glucose monitor log: Slightly high fastings, postprandials mostly in target. She had low risk cell free DNA testing. Record Review No additional issues idenitfied Past Medical History Diagnosis Date ??? Acquired hypothyroidism 09/17/2015 ??? Obesity Past Surgical History Procedure Laterality Date ??? Tonsillectomy OB History Para Term AB TAB SAB Ectopic Multiple Living 3 1 1 1 1 2 # Outc Date GA Wgt Del 1 TAB 2 Term 2009 37w0d 3.289 kg (7 lb 4 oz) Vag-Spont 3 Current Social: Denies illicit substance use or alcohol Former tobacco use Works in a [employer] Current Outpatient Prescriptions Medication Sig Dispense Refill ??? levothyroxine (SYNTHROID) 125 mcg Tablet 0 ??? metFORMIN (GLUCOPHAGE) 500 mg Tablet 500 mg twice daily: Gestational Diabetes Mellitus 0 No current facility-administered medications for this visit. No Known Allergies Review of Systems Constitutional: generally well, finds that she sweats easily Eyes: negative Ears Nose Throat:negative Respiratory: no cough, shortness of breath, or wheezing Cardiac: negative Gastrointestinal: has nausea. Genitourinary: Negative for dysuria Musculoskeletal: negative Skin: negative Psychiatric: has been anxious about the diabetes Endocrine:negative Contractions: none Leaking: none Bleeding: none Ultrasound Growth appropriate for gestational age EGA 23 5/7 weeks Amniotic fluid volume normal Placenta posterior Presentation breech Morphology: No structural abnormality. Physical Exam Filed Vitals: 09/17/15 1426 BP: 115/59 General: alert, well appearing, in no apparent distress HEENT: normocephalic, atraumatic Extremities: normal Neurologic:alert, oriented, normal speech Abdomen: abdomen is soft without significant tenderness Psychiatric: affect is appropriate. Uterine Size: consistent with dates and obesity Assessment and Recommendations: 40 y.o. at 22w3d weeks gestation. Gestational diabetes fairly well-controlled on metformin. I recommended to her that we increase hernight dose to 850 mg and provided a prescription. I believe she is not eating enough in an effort to avoid insulin and transfer out of the midwifery service. I recommended daily exercise to her as aneffective addition to her regimen. She needs to eat enough not to lose weight. I recommend titrating up her metformin to a maximum of 2 grams/day. She will need nonstress tests beginning at 32 weeks'and monthly ultrasounds in the third trimester. She should be delivered at 39 weeks' with if EFW above 4500 grams. Hypothyroidism. Recommend 8-12 week TSH testing I appreciate the opportunity to be involved in this patient's care and am available if further questions should arise. Gayatri Natarajan MD 09/19/2015 Cc: Narcisa Santamaria CNM This was a 30 minute encounter 25 minutes of which was face to face consultation regarding the ultrasound findings, physiology of diabetes, strategies for management and options for follow up documented in this encounter Plan of Treatment Not on file documented as of this encounter Visit Diagnoses Diagnosis Gestational diabetes mellitus in second trimester, unspecified diabetic control Acquired hypothyroidism Unspecified hypothyroidism Obesity, unspecified obesity severity, unspecified obesity type documented in this encounter Care Teams Manager Managing Relationship Specialty Start Date End Date Merna Tobias MD [address] [place] [address] PCP - General 06/07/10 08/03/16 documented as of this encounter
--- OUTSIDE RECORDS SUMMARY | 2024-04-08 12:15 | XMS_ITS | Clinical Summary ---
Author Organization [facility] Address [address] [place] [address] Care Team Providers Care Banking Center Manager Name Role Phone Unknown, Provider Primary Care Provider [phone] Social History Tobacco Use Types Packs/Day Years Used Date Smoking Tobacco: Never Assessed Sex and Gender Information Value Date Recorded Sex Assigned at Not on file Gender Identity Not on file Sexual Orientation Not on file Plan of Treatment Health Maintenance Due Date Last Done Comments Hepatitis C Screen 1975 Hepatitis B Vaccine (1 of 3 - 19+ 3-dose series) 08/18 COVID-19 Vaccine ( season) 2023 Care Teams Banking Center Manager Relationship Specialty Start Date End Date Unknown, Provider, PCP - General 09/09/12
[2024-04-08 16:22] LABS: Calculated LDL 113 mg/dL (<100); Cholesterol 203 mg/dL (<200); HDL Cholesterol 46 mg/dL (40-60); TSH (W/Ref FT4) 11.98 uIU/mL (0.36-3.74); Triglyceride 222 mg/dL (<150); Vitamin D 25 Total 29.6 ng/mL (30-100)
[2024-04-08 16:40] LABS: Hemoglobin A1C 5.6 % (<5.7)
[2024-04-08 16:47] LABS: FREE T4 1.01 ng/dL (0.76-1.46)
== END 2024-04-08 12:13 | disposition home or self-care (01) ==
LOC: NCHCN 12:12
PROVIDERS: PCP Physician Assistant Medical; Visit Provider Physician Assistant Medical
DX: E03.9 Hypothyroidism, unspecified (principal); E66.9 Obesity, unspecified; F32.A Depression, unspecified
CPT/HCPCS: 80061; 82306; 83036; 84439; 84443

== ENCOUNTER 2024-05-05 01:11 | Outpatient (CLI) | payer MEDICAID, SELFPAY ==
--- NOTE | 2024-05-05 08:11 | DI.MAMMO_ITS ---
Exam(s) MAMMO SCREENING EXAM: MAMMO SCREENING CLINICAL HISTORY: Screening, Z12.31. TECHNIQUE: Bilateral full field digital CC and MLO mammographic images were obtained with 3D tomosyn thesis and utilizing computer aided detection (CAD). COMPARISON: Prior mammograms were reviewed. FINDINGS: No new left breast findings. In the right breast there is benign-appearing lymph node in the upper outer quadrant again noted. However, there is also an oval slightly lobulated nodular density located approximately 10 cm in from the nipple on the MLO view, measuring approximately 11 by 7 mm unchanged from mammogram October 2023 b ut not evident on mammogram of March 2020. This was shown to be a cyst on ultrasound examination of 10/30/2022. There are no malignant-appearing microcalcification groups in this region nor elsewhere in either nahum ast. There is no significant architectural distortion nor skin thickening-retraction. IMPRESSION: Stable benign-appearing findings. No radiographic evidence of malignancy. BI-RADS Category 2 - Benign Findings Breast Density - Category B - Scattered areas of fibroglandular density Breast density Category C or D implies that the patient has dense breast tissue. Dense breast tissue can make it harder to find cancer on a mammogram. Dense breast tissue is also associated with an incr eased risk of breast cancer. This information about the result of the mammogram report was provided to the patient to raise their awareness. Use this report when you speak with the patient about their risks for breast cancer, which includes their family history. At that time, you may recommend additional screening tests (Ultrasoun d or MRI) as these tests may add significant information. A negative radiographic report should not delay biopsy if a dominant or clinically suspicious mass is present. Up to ten percent of cancers are not identified on mammography. A negative report may reinforce clinical impression. Adenosis and dense breasts may obscure an underlying neoplasm. False positive reports average 6 to 10%. Patient will receive a letter notifying them of these results.
== END 2024-05-05 01:31 ==
LOC: DI 01:11
PROVIDERS: PCP Physician Assistant Medical; Visit Provider Physician Assistant Medical
DX: Z12.31 Encounter for screening mammogram for malignant neoplasm of breast (principal)
CPT/HCPCS: 77063; 77067

== ENCOUNTER 2024-06-09 06:53 | Day surgery (SDC) | payer MEDICAID, SELFPAY ==
--- NOTE | 2024-06-08 16:16 | W.PM.DSUDISC ---
Date of service: 06/09/24 Discharge Plan Disposition Patient Disposition: Home Condition: Good Discharge Details Reason For Visit: screening colonoscopy Attending Provider: Urbano Gay Primary Care Provider: Jose Antonio Harden Home Meds and New Rx's Prescriptions: Continued metformin 500 mg tablet 500 mg PO DAILY levothyroxine 200 mcg capsule 200 mcg PO DAILY fluticasone furoate 27.5 mcg/actuation spray,suspension 1 spray intranasal DAILY Rx Instructions: into each nostril bupropion HCl 150 mg tablet sustained-release 12 hr 150 mg PO QAM Mirena 1 EACH intrauterine device 1 ea Intrauterine ONCE ibuprofen 600 mg tablet 600 mg PO TID PRN (Reason: pain) Qty: 90 3RF Discontinued bisacodyl [Dulcolax (bisacodyl)] 5 mg tablet,delayed release (DR/EC) 5 mg PO ONCE Qty: 4 0RF Rx Instructions: Take per colonoscopy instructions provided by ordering providers office polyethylene glycol 3350 17 gram/dose powder 17 g PO ONCE Qty: 238 0RF Rx Instructions: Take per colonoscopy instructions provided by ordering providers office Discharge Instructions Instructions: Colon polyps, Diverticulosis Additional Instructions: Magdalene, it was very nice meeting you today, and I hope you are comfortable for the procedure. Your prep was excellent and I could see everything fine. There is some redundancy of the perianal skin, with some external skin tags, that are all consistent with external hemorrhoids with historic flares. Some of this could be excised, but as we discussed, this is a fairly painful procedure at least in terms of recovery, and I generally recommend that patients really exhaust nonoperative strategies before resorting to surgery. Moisten tablets can oftentimes help with some basic toileting habits. You have internal hemorrhoids as well, with a little bit of inflammation associated with the bowel prep. These could also be treated with hemorrhoid bands, but as I mentioned before hand, with just occasional intermittent bleeding, I do not think I would spend too much time worrying about them at this point. With regards to the rest of the colonoscopy, I did find and removed 2 polyps today. Neither one of them appears particularly worrisome. Both will be sent off for testing since polyps due, and different varieties, and the nature of the polyps helps us to guide the timing of the next colonoscopy. Those results usually take a week or 2 to get back, but as soon as I have those, the office will be in touch. Incidentally, he also have a fair amount of diverticulosis. These are little weak spots in the wall of the colon that typically accumulate as we get older. This causes the inside lining to pooch outward a little bit. These can get infected or inflamed during flareups that we refer to as diverticulitis. Typical symptoms include fairly significant pain is usually on the left lower side of the abdomen. Patients often times feel pretty ill during these episodes as well. Frequently it is treated with antibiotics. Hopefully years will never bother you. I attached some basic information here about diverticular management. My general recommendations to most patients is to increase the amount of dietary fiber that you consume. I would target about 20 to 30 g of fiber per day if you are able to. Staying well-hydrated with at least 2 L of plain water every day also provides good colon health since the main job of the large intestine or colon is to reabsorb free water. Finally, avoiding any symptoms of constipation with things like a high-fiber diet mentioned above, or occasional laxatives for severe symptoms will all be very helpful for diverticulosis as well as hemorrhoid disease. If you have any questions, or need anything at all in the next few weeks, please do not hesitate to ask. 1. If tolerated, consume a soft, low fiber diet for 1-2 days. [address] Do not drive, drink alcohol, operate machinery, make critical decisions, or do activities that require coordination or balance for 24 hours. 3. Because air was put into your colon during the procedure, expelling air from your rectum (passing gas or farting) is normal. 4. You may not have a bowel movement for 1-3 days because of the colonoscopy prep. This is normal. 5. Go directly to the emergency room if you notice any of the following: Develop chills (warm to touch), or if you have a thermometer and your temperature is above 101 Difficulty breathing or difficultly swallowing Persistent vomiting Severe abdominal pain, other than gas cramps Severe chest pain Black, tarry stools Any bleeding ? exceeding one tablespoon 6. Call your physician if the site where your intravenous was started becomes red, swollen, painful, and warm to touch. 7. Your physician has reviewed your pre-procedure medications. Please continue to take those medications as previously ordered. You will be given specific information/education regarding any changes to your medications before leaving. Activity:: Activity as Tolerated Diet:: As Tolerated Discharge Orders Discharge Orders: Discharge Order (Routine); Ordered 06/08/24 Ordered By: Urbano Gay DS: Diagnosis Discharge Diagnosis (1) Encounter for screening colonoscopy: Status: Acute Asessment and Plan: Follow-up on polypectomy results
--- NOTE | 2024-06-08 16:19 | COLE_ITS ---
Date of service: 06/09/24 Time of Service: 08:55 Colonoscopy Report Date of procedure: 06/09/24 Pre-op diagnosis general: screening colonsocopy Post-op diagnosis procedure note: other (Hemorrhoids, diverticulosis, colon polyps) Procedure: colonoscopy with polypectomy Surgeon: Urbano Gay Anesthesia Type: General:No Airway Estimated blood loss (mL): 5 Complications: None Disposition: same day Indications: Magdalene is a 48 year old woman who needs a screening colonsocopy Prep: Miralax/Dulcolax Procedure Start Time: 08:17 Procedure End Time: 08:39 Retraction Time: 12 Findings: Internal and external hemorrhoids, diverticulosis, 0.25 cm polyp at 30 cm, 0.25 cm polyp at 25 cm Procedure Description: After the induction of anesthesia, and with the patient in left lateral decubitus position, I began by performing an external anorectal exam.? Perineum and skin were normal, as was the anal verge.? There are some perianal skin tags consistent with external hemorrhoids.? Next, I performed a digital rectal exam.? I did not appreciate any abnormal findings.? Next, I advanced a colonoscope into the rectal vault.? I performed retroflexion.? There appears to be grade 1 internal hemorrhoids.? Using insufflation, I then advanced the colonoscope beyond the rectal folds and into the sigmoid colon before advancing towards the cecum.? The quality of the prep was excellent.? The scope was noted to be in the cecum by identification of the ileocecal valve and appendiceal orifice.? I then began withdrawing the colonoscope using repeated irrigation as necessary for full evaluation of the colonic mucosa. There is sigmoid diverticulosis. ?Around 30 cm from the anal verge was a 0.25 cm polyp. Narrowband imaging was used to assist with the analysis. General features were consistent with a hyperplastic polyp, but to be safe, I did perform cold forcep polypectomy here. There was minimal bleeding. Was another small area of raised mucosa around 25 cm from the anal verge. This was also removed with cold forceps without any issue. Once the scope was withdrawn to the level of the rectum, great care was taken to examine portions of the rectal folds.? Finally, the scope was withdrawn and the patient was brought to the same-day surgery recovery unit as the anesthetic wore off. ?The findings and instructions were shared with the patient prior to discharge. [place] Bowel Prep [place] Bowel Prep Right Colon: 3 Left Colon: 3 Transverse Colon: 3 Total Score: 9
[2024-06-09 07:07] VITALS: BP 138/91; PULSE 83; RESP 18; TEMP 36.4; O2SAT 99
[2024-06-09] MEDS: Normal Saline Flush 10 ML SYR IV (07:25)
--- NOTE | 2024-06-09 07:54 | W.ANESPRE ---
General Info Date of Service Date Performed: 06/09/24 Height: 5 ft 3 in Weight: 120.9 kg Body Mass Index (BMI): 47.2 Surgical Procedure: Operation Date: 06/09/24 08:25 Proposed Procedure Side Surgeon p Colonoscopy Urbano Gay MD s Possible Hemorrhoid Banding Urbano Gay MD Meds Allergies and Home Medications Allergies Allergy/AdvReac Type Severity Reaction Status Date / Time methotrexate Allergy Severe other Verified 06/09/24 07:01 latex Allergy Unknown Skin Rash Verified 06/09/24 07:01 Home Medication ?Medication ?Instructions ?Recorded levonorgestrel 21 mcg/24 hr (up to 1 ea intrauterine ONCE 12/17/17 8 years) 52 mg intrauterine device (Mirena) ibuprofen 600 mg tablet 600 mg PO TID PRN pain #90 tabs 06/07/21 levothyroxine 200 mcg capsule 200 mcg PO DAILY 05/31/22 bupropion HCl 150 mg tablet,12 hr 150 mg PO QAM 05/15/24 sustained-release fluticasone furoate 27.5 1 spray intranasal DAILY 05/15/24 mcg/actuation nasal spray,suspension metformin 500 mg tablet 500 mg PO DAILY 05/22/24 Current Visit Medications: Current Medications Generic Name Dose Route Start Last Admin Trade Name Freq PRN Reason Stop Dose Admin Ringer's Solution 1,000 mls @ 80 mls/hr 06/09/24 06:00 IV 06/09/24 23:59 INFUSION YAIR IV Miscellaneous Supplies 1 each 06/09/24 06:00 Iv Access IV 06/09/24 23:59 DIRECTED YAIR Ondansetron HCl 4 mg 06/08/24 16:18 Ondansetron 4 Mg/2 Ml Vial IVP 07/08/24 16:17 Q4H PRN PRN Nausea / Vomiting Sodium Chloride 0 ml 06/09/24 06:00 06/09/24 07:25 Normal Saline Flush 10 Ml Syr IV 06/09/24 23:59 10 ml PRN PRN Administration Sodium Chloride 0 ml 06/09/24 06:00 Normal Saline 10 Ml Vial IJ 06/09/24 23:59 DIRECTED PRN Sterile Water 0 ml 06/09/24 06:00 Water,Injection,Sterile 10 Ml Vial IJ 06/09/24 23:59 DIRECTED PRN PFSH Active Problems Active Problems: Problem Status Onset Code Encounter for screening colonoscopy Acute Z12.11 SONAM (obstructive sleep apnea) Chronic G47.33 Acute serous otitis media, left ear Acute H65.02 Lesion of external ear canal Acute H61.90 Rectal bleed Acute K62.5 External hemorrhoids Acute K64.4 Chest pain Acute R07.9 Fatigue Acute R53.83 Hypertension Chronic I10 Right carpal tunnel syndrome Resolved G56.01 Left carpal tunnel syndrome Resolved G56.02 Medical History Medical History Psoriasis Toe infection Carpal tunnel syndrome Elevated CPK Chest discomfort Cholelithiasis Macromastia Salivary gland disorder Cough Snoring Otitis externa Depression Hypothyroidism Perioral dermatitis Psoriasis of scalp Tobacco abuse Lymphadenopathy Hemorrhoids Erythema multiforme Jaw pain Seasonal allergies Gestational diabetes Psoriatic arthritis Bilateral carpal tunnel syndrome Fatigue Muscle cramps Skin tag Surgical History Surgical History Dilation and curettage (01/16/16) SEVERED CORD AFTER DELIVERY OF , RETAINED PLACENTA. History of colposcopy Hx of tonsillectomy Tobacco Smoking/Tobacco Use Status: Former Tobacco Use Alcohol Alcohol Intake: current Alcohol intake frequency: holidays/special occasions only Alcohol type: beer, wine and hard liquor Substance Use Substance use: Never Substance use type: does not use Vital Signs and Lab Results Vital Signs Most Recent Vital Signs in EMR: Most Recent Vital Signs Temp Pulse Resp BP Pulse Ox 36.4 C L 83 18 138/91 H 99 06/09/24 07:07 06/09/24 07:07 06/09/24 07:07 06/09/24 07:07 06/09/24 07:07 Point of Care Results Point of Care Results: POC- Test(urine) Negative 06/09/24 07:17 Lab Results Blood Type / Crossmatch: No Data to Display Complete Blood Count: No Data to Display Complete Metabolic Panel: No Data to Display Liver Function Panel: No Data to Display Coagulation Panel: No Data to Display Cardiac Panel: No Data to Display Arterial Blood Gas: No Data to Display Venous Blood Gas: No Data to Display Pancreas Panel: No Data to Display Thyroid Panel: No Data to Display Infectious Disease: No Data to Display Blood Cultures: No Data to Display Toxicology Panel: No Data to Display Panel: No Data to Display Imaging and Studies Imaging and Studies Study information below may be from another EMR and interpreted by another provider. Please see original notes in EMR for more complete details. EKG Summary: Conclusion Sinus rhythm...normal P axis, V-rate 60- 99 Anesthesia Assessment and Plan Anesthesia History Personal History: No History of Anesthesia Complications Family History: No Family History of Anesthesia Complications Exercise Tolerance Exercise Tolerance: Metabolic Equivalents>4 Pertinent Negatives Pertinent Negatives: No Symptoms of GERD Cardiac & Pulmonary Exam Cardiac Exam: Normal S1/S2 Heart Sounds and Unable to Assess Pulmonary Exam: Clear Bilateral Breath Sounds Implantable Cardiac Device Does patient have a Pacemaker or an ICD?: No Airway Exam Known Difficult Airway: No Mallampati Class: 2 Mouth Opening: Normal (> 3cm) Thyromental Distance: Greater than 3 cm Neck Range of Motion: Full ROM Neck Circumference: Normal Teeth Condition: Normal Dentition ASA Classification ASA Score: ASA 3 Emergency Case?: No NPO Status NPO Status: NPO Clears >2 hours, Solids >8 hours Status Status: Negative HCG Anesthesia Plan Resuscitation Status: Full Code Anesthesia Technique: General Anesthesia Airway Planned: Natural Airway Monitors Used: Standard Monitors
[2024-06-09 07:56] VITALS: BMI 47.2
--- NOTE | 2024-06-09 08:35 | BOWEL_PTH ---
PATIENT: Clarita Smith LOC: [facility] U#:[id number] AGE/SX: 48/F ROOM: RE06/09/[address]: Urbano Gay MD : 1975 BED: DIS: 06/09/2024 SPEC #: [id number] RECD: 06/09/24 12:51 STATUS: JONAH RE #: [id number] SIRENA: 06/09/24 08:[address]: Urbano Gay DEPT: Surgical Specimen RECD BY: India Sanchez ENTERED: 06/09/24 12:52 SP TYPE: Bowel OTHR DR: Jose Antonio Harden Tissues: 1 - BIOPSY BOWEL 2 - BIOPSY BOWEL Procedures: GROSS AND MICRO LEVEL 4 Comments: [id number]
[2024-06-09 08:47] VITALS: BP 143/101; PULSE 93; RESP 18; TEMP 36.1; O2SAT 99
--- NOTE | 2024-06-09 09:03 | W.ANESPOSTOP ---
Postoperative Evaluation Date, Time and Location Date Performed: 06/09/24 Time Performed: 09:03 Patient Location: Day [facility] Unit Vital Signs Most Recent Imported Vital Signs: Most Recent Vital Signs Temp Pulse Resp BP Pulse Ox 36.1 C L 93 H 18 143/101 H 99 06/09/24 08:47 06/09/24 08:47 06/09/24 08:47 06/09/24 08:47 06/09/24 08:47 Pain Score Most Recent Pain Score: Most Recent Pain Score Pain Level 0 06/09/24 08:47 Assessment Mental Status: Awake (Alert & Oriented to Patient Baseline) Airway and Respiratory Function: Patent airway with normal (patient baseline) respiratory exam Cardiovascular Function: Hemodynamically Stable Hydration Status: Adequately Hydrated Nausea & Vomiting: No Nausea or Vomiting Pain: Pt. Denies Any Pain Peripheral Nerve Block: Patient did not receive a nerve block
[2024-06-09 09:15] VITALS: BP 120/76; PULSE 72; RESP 18; TEMP 36.6; O2SAT 98
== END 2024-06-09 09:37 | disposition home or self-care (01) ==
PROVIDERS: PCP Physician Assistant Medical; Visit Provider Surgery
PROC: 0DJD8ZZ Inspection of Lower Intestinal Tract, Via Natural or Artificial Opening Endoscopic (ICD-10-PCS; CPT 45378; principal; 2024-06-09 08:15)
DX: Z12.11 Encounter for screening for malignant neoplasm of colon (principal); I10 Essential (primary) hypertension; K63.5 Polyp of colon; K64.0 First degree hemorrhoids; K57.30 Diverticulosis of large intestine without perforation or abscess without bleeding
CPT/HCPCS: 45380; 81025; 88305; J2704

== ENCOUNTER 2024-09-03 17:40 | Outpatient (REF) | payer MEDICAID, SELFPAY ==
[2024-09-03 20:05] LABS: Abs Immature Grans 0.04 10^3/uL (0.0-0.06); Absolute Basophil Count 0.06 10^3/uL (0.0-0.2); Absolute Eosinophil Count 0.11 10^3/uL (0.0-0.7); Absolute Lymphocyte Count 2.31 10^3/uL (1.2-3.4); Absolute Monocyte Count 0.54 10^3/uL (0.1-0.8); Basophils % 0.8 %; Eosinophils % 1.5 %; HGB 14.6 g/dL (11.2-15.7); Immature Grans % 0.5 %; Lymphocytes % 31.4 %; MCH 31.9 pg (27.0-33.0); MCHC 34.8 % (32.0-36.0); MCV 92 fL (80-95); MPV 9.6 fL (8.0-11.0); Monocytes % 7.3 %; Neutrophils % 58.5 %; Platelet Count 277 10^3/uL (130-400); RBC 4.58 10^6/uL (3.93-5.22); RDW 11.5 % (11.7-14.6); RDW-SD 38.8 fL; WBC 7.36 10^3/uL (4.4-10.8)
[2024-09-03 20:07] LABS: ESR 8 mm/hr (0-20)
[2024-09-03 20:12] LABS: C-Reactive Protein < 0.50 mg/dL (<or=0.5)
[2024-09-04 17:54] LABS: Rheumatoid Factor <8.6 IU/mL (<12.0)
[2024-09-04 18:36] LABS: Thyroperoxidase Antibody >1300 U/mL (<=60)
[2024-09-05 14:41] LABS: ANA Interpretation Positive (Negative); ANA Titer Pattern 1:320 Homogeneous
[2024-09-06 13:02] LABS: Thyroglobulin Antibody 2.7 IU/mL (<1.8); Thyroglobulin Tumor Marker <0.1 ng/mL
== END 2024-09-03 17:41 | disposition home or self-care (01) ==
LOC: NCHCN 17:40
PROVIDERS: PCP Physician Assistant Medical; Visit Provider Family Medicine
DX: L40.50 Arthropathic psoriasis, unspecified (principal); E03.9 Hypothyroidism, unspecified
CPT/HCPCS: 85652; 84432; 85025; 86038; 86140; 86376; 86431; 86800

== ENCOUNTER 2025-01-08 00:29 | Outpatient (CLI) | payer MEDICAID, SELFPAY ==
--- NOTE | 2025-01-08 | DI.US_ITS ---
Exam(s) US ABDOMEN LIMITED EXAM: US ABDOMEN LIMITED CLINICAL HISTORY: Biliary colic, K80.50-calculus of bile duct wo cholangitis or cholecystitis TECHNIQUE: Ultrasound abdomen performed using standard protocol. COMPARISON: CT CT CHEST/ABD/PEL W from 08/21/2023 FINDINGS: LIVER: Nor enlarged at 19 cm in length. Diffusely increased echogenicity and mild of decreased through transmission, consistent with [id number] hepatic steatosis. No focal liver lesions are seen.. GALLBLADDER: A large stone is again demonstrated in the gallbladder. Sludge is also present. No evidence of wall thickening. No pericholecystic fluid identified. GUERRA'S SIGN: Negative. BILIARY SYSTEM: Visualization of the common duct with partially obscured by shadowing from the large gallstone. No intrahepatic biliary ductal dilation. RIGHT KIDNEY: Normal size. No evidence of renal calculi. No evidence of hydronephrosis. No suspicious renal mass. No cyst identified. PANCREAS: Normal where visualized. ABDOMINAL AORTA AND IVC: Visualized portions normal caliber. ASCITES: None seen. IMPRESSION: No evidence of acute cholecystitis. A large stones again noted in the gallbladder. Sludge is also present. No biliary dilatation. DATA REPOSITORY:
== END 2025-01-08 00:49 ==
LOC: DI 00:29
PROVIDERS: PCP Physician Assistant Medical; Visit Provider Family Medicine
DX: K80.50 Calculus of bile duct without cholangitis or cholecystitis without obstruction (principal)
CPT/HCPCS: 76705

== ENCOUNTER 2025-04-06 15:10 | Outpatient (REF) | payer MEDICAID, SELFPAY ==
[2025-04-06 16:46] LABS: TSH 0.69 uIU/mL (0.36-3.74)
[2025-04-06 22:02] LABS: T3,Free 3.5 pg/mL (2.8-5.3)
== END 2025-04-06 15:11 | disposition home or self-care (01) ==
LOC: NCHCN 15:10
PROVIDERS: PCP Physician Assistant Medical; Visit Provider Physician Assistant Medical
DX: E06.3 Autoimmune thyroiditis (principal)
CPT/HCPCS: 84439; 84443; 84481

== ENCOUNTER 2025-05-04 16:29 | Outpatient (REF) | payer MEDICAID, SELFPAY ==
[2025-05-04 18:11] LABS: HCT 38.9 % (36.0-46.0); HGB 13.5 g/dL (11.2-15.7); MCH 30.9 pg (27.0-33.0); MCHC 34.7 % (32.0-36.0); MCV 89 fL (80-95); MPV 9.8 fL (8.0-11.0); Platelet Count 230 10^3/uL (130-400); RBC 4.37 10^6/uL (3.93-5.22); RDW 11.7 % (11.7-14.6); RDW-SD 37.2 fL; WBC 5.36 10^3/uL (4.4-10.8)
[2025-05-04 18:43] LABS: Hemoglobin A1C 5.7 % (<5.7)
[2025-05-04 18:44] LABS: ALT 33 U/L (14-59); AST 18 U/L (15-37); Albumin 3.4 g/dL (3.4-5.0); Alkaline Phosphatase 81 U/L (46-116); Anion Gap 8.2 mmol/L (3-11); BUN 10 mg/dL (7-18); Bilirubin, Total 0.5 mg/dL (0.2-1.0); CO2 27.8 mmol/L (21.0-32.0); Calcium 8.8 mg/dL (8.5-10.1); Chloride 102 mmol/L (98-107); Estimated GFR 106.62 (mL/min/1.73m2); Glucose 147 mg/dL (74-106); Potassium 3.9 mmol/L (3.5-5.1); Sodium 138 mmol/L (136-145); Total Protein 6.7 g/dL (6.4-8.2)
== END 2025-05-04 16:30 | disposition home or self-care (01) ==
LOC: NCHCN 16:29
PROVIDERS: PCP Physician Assistant Medical; Visit Provider Physician Assistant Medical
DX: L40.50 Arthropathic psoriasis, unspecified (principal); E66.9 Obesity, unspecified
CPT/HCPCS: 80053; 85027; 83036

== ENCOUNTER 2025-05-12 01:04 | Outpatient (CLI) | payer MEDICAID, SELFPAY ==
--- NOTE | 2025-05-12 09:15 | DI.MAMMO_ITS ---
Exam(s) MAMMO SCREENING EXAM: MAMMO SCREENING CLINICAL HISTORY: SCREENING,Z12.31. TECHNIQUE: Bilateral full field digital CC and MLO mammographic images were obtained with 3D tomosynthesis and utilizing computer aided detection (CAD). COMPARISON: Prior mammograms were reviewed. FINDINGS: There are no new left breast findings. In the right breast benign-appearing lymph node in the upper quadrants again noted. Also again noted is a 2nd oval nodular density located approximately tends-11 cm in from the nipple on the MLO view, this having been shown to be a benign cyst on prior ultrasound of October 2022 There are no new spiculated masses nor new malignant appearing microcalcification groups. There is no significant architectural distortion nor skin thickening-retraction. IMPRESSION: Stable benign-appearing findings. No radiographic evidence of malignancy. BI-RADS Category 2 - Benign Findings Breast Density - Category B - There are scattered areas of fibroglandular density. Breast density Category C or D implies that the patient has dense breast tissue. Dense breast tissue can make it harder to find cancer on a mammogram. Dense breast tissue is also associated with an increased risk of breast cancer. This information about the result of the mammogram report was provided to the patient to raise their awareness. Use this report when you speak with the patient about their risks for breast cancer, which includes their family history. At that time, you may recommend additional screening tests (Ultrasound or MRI) as these tests may add significant information. A negative radiographic report should not delay biopsy if a dominant or clinically suspicious mass is present. Up to ten percent of cancers are not identified on mammography. A negative report may reinforce clinical impression. Adenosis and dense breasts may obscure an underlying neoplasm. False positive reports average 6 to 10%. Patient will receive a letter notifying them of these results.
== END 2025-05-12 01:24 ==
LOC: DI 01:04
PROVIDERS: PCP Physician Assistant Medical; Visit Provider Physician Assistant Medical
DX: Z12.31 Encounter for screening mammogram for malignant neoplasm of breast (principal)
CPT/HCPCS: 77063; 77067